=== PATIENT | male | born 1945 | race Caucasian/White ===

== ENCOUNTER 2019-11-13 15:10 | Observation (INO) | payer OTHER ==
[2019-11-13 16:02] LABS: Absolute Lymphocytes (CBC) 0.6 K/uL (0.7-4.9); Basophils % 0.4 % (0-1.3); Hematocrit 43.8 % (39.6-49.0); Lymphocytes % 13.1 % (15.3-44.8); MPV 7.6 fL (7.6-11.3); RBC Red Blood Cell Count 4.55 M/uL (4.33-5.43)
[2019-11-13 16:10] LABS: Protime INR 1.15
[2019-11-13 16:27] LABS: ALT/SGPT 65 U/L (12-78); AST/SGOT 68 U/L (15-37); Albumin 4.1 g/dL (3.4-5.0); Alkaline Phosphatase 72 U/L (45-117); BUN Blood Urea Nitrogen 21 mg/dL (7-18); Bicarbonate 29 mmol/L (21-32); Bilirubin Direct 0.3 mg/dL (0-0.2); Bilirubin Total 0.9 mg/dL (0.2-1.0); Glucose Level 94 mg/dL (74-106); Magnesium 2.2 mg/dL (1.8-2.4); NT PRO-BNP 26 pg/mL (<450); Potassium 3.8 mmol/L (3.5-5.1); Protein, Total 7.9 g/dL (6.4-8.2); Sodium Level 137 mmol/L (136-145); Troponin (Emerg Dept Use Only) < 0.02 ng/mL (0.0-0.045)
--- NOTE | 2019-11-13 17:10 | RAD REPORT ---
EXAM DESCRIPTION: RAD - Chest Single View - 11/13/2019 4:58 pm CLINICAL HISTORY: chest pain, sob COMPARISON: December 2018 TECHNIQUE: AP portable chest image was obtained 11/13/2019 4:58 pm . FINDINGS: No focal mass or consolidation. Interstitial pattern is accentuated by shallow inspiration . No significant change from comparison. Heart and vasculature are normal. No measurable pleural effu whitney and no pneumothorax. No acute bony abnormality seen. No acute aortic findings suspected. IMPRESSION: No acute cardiopulmonary process. No significant change from comparison.
--- NOTE | 2019-11-13 17:16 | RAD REPORT ---
EXAM DESCRIPTION: CT - Chest For Pe Angio - 11/13/2019 5:06 pm CLINICAL HISTORY: chest pain, shortness of breath COMPARISON: Chest Single View dated 11/13/2019 TECHNIQUE: Dynamically enhanced 3 mm thick images of the chest were obtained during administration o f approximately 150mL Isovue 370 IV contrast. Coronal and oblique MIP reconstruction images were gene rated and reviewed. Exam utilizes a protocol to evaluate the pulmonary arterial tree. All CT scans are performed using dose optimization technique as appropriate and may include automated exposure control or mA/KV adjustment according to patient size. FINDINGS: No pulmonary emboli are identified. The aorta as imaged shows no acute or suspicious finding. No pericardial thickening or effusion. No infiltrate or mass in the lung parenchyma. No pleural effusion or pleural thickening. Calcified an d noncalcified pleural plaques present with no suspicious mass component. Interstitial markings are a ccentuated by motion. A minimal edema or infiltrate could potentially be mass. No mediastinal or hilar suspicious masses. No chest wall masses or abnormal axillary lymphadenopathy. Granulomatous calcifications are present. IMPRESSION: No pulmonary emboli identified. No mass, consolidation or suspicious lung parenchymal process. Respiratory motion accentuates interst itial pattern potentially masking mild interstitial edema or infiltrate.
[2019-11-13] MEDS ORDERED: ACETAMINOPHEN 500 MG TAB PO PRN (18:01)
[2019-11-13] MEDS ORDERED: ONDANSETRON 4 MG/2 ML VIAL IV PRN (18:01)
[2019-11-13] MEDS ORDERED: ASPIRIN 81 MG CHEWABLE TABLET ONE (18:08)
[2019-11-13 20:47] VITALS: BMI 28.4
[2019-11-13] MEDS ORDERED: SIMETHICONE 125 MG PO PRN (21:18)
[2019-11-13] MEDS ORDERED: DOCUSATE 100 MG PO PRN (21:18)
[2019-11-14 05:51] LABS: Absolute Lymphocytes (CBC) 0.7 K/uL (0.7-4.9); Basophils % 0.5 % (0-1.3); Hematocrit 42.6 % (39.6-49.0); MPV 7.7 fL (7.6-11.3); RBC Red Blood Cell Count 4.42 M/uL (4.33-5.43)
[2019-11-14 06:26] LABS: BUN Blood Urea Nitrogen 14 mg/dL (7-18); Bicarbonate 25 mmol/L (21-32); Glucose Level 96 mg/dL (74-106); Potassium 3.7 mmol/L (3.5-5.1); Sodium Level 141 mmol/L (136-145)
[2019-11-14] MEDS: ASPIRIN EC 81 MG TAB PO SCH (08:12)
[2019-11-14] MEDS ORDERED: [UNRECOGNIZED DRUG - OTHER] PO SCH (09:00)
[2019-11-14] MEDS ORDERED: HOME MED 1 EA UNK (Fluticasone/Vilanterol [Breo Ellipta 200-25 Mcg Inh] 1 EACH) IH SCH (09:00)
[2019-11-14] MEDS ORDERED: HOME MED 1 EA UNK (Vitamin E [Vitamin E] 1,000 UNIT) PO SCH (09:00)
[2019-11-14] MEDS ORDERED: HOME MED 1 EA UNK (Fluticasone Propionate [Flovent Diskus] 50 MCG) IH SCH (09:00)
[2019-11-14] MEDS ORDERED: TAMSULOSIN HCL 0.4 MG PO SCH (09:00)
[2019-11-14] MEDS ORDERED: ASPIRIN 81 MG PO SCH (09:00)
[2019-11-14] MEDS ORDERED: LORATADINE 10 MG PO SCH (09:00)
[2019-11-14] MEDS ORDERED: RILUZOLE 50 MG PO SCH (09:00)
[2019-11-14] MEDS ORDERED: GABAPENTIN PO SCH (09:00)
[2019-11-14] MEDS ORDERED: HOME MED 1 EA UNK (Ascorbic Acid [Vitamin C] 1,000 MG) PO SCH (09:00)
[2019-11-14] MEDS ORDERED: LIDOCAINE 1% 20 ML MDV ONE (11:21)
[2019-11-14] MEDS ORDERED: HEPA 1000U/500MLS 2,000 UNIT/1,000 ML BAG IV ONE (11:21)
[2019-11-14] MEDS ORDERED: ATROPINE SULF 1 MG/10 ML SYR IV ONE (11:22)
[2019-11-14] MEDS ORDERED: NICARDIPINE HCL 25 MG/10 ML IV ONE (11:22)
[2019-11-14] MEDS ORDERED: HEPARIN 5000 UNIT/ML 1 ML VIAL ONE ×2 (11:22→11:31)
[2019-11-14] MEDS ORDERED: NITROGLYCERIN/D5W 25 MG/250 ML BTL IV ONE (11:22)
[2019-11-14] MEDS ORDERED: NITROGLYCERIN 100 MCG/ML SYR (for cath lab use only) IV ONE (11:22)
[2019-11-14] MEDS ORDERED: MIDAZOLAM HCL 2 MG/2 ML INJ ONE ×2 (11:29→12:06)
[2019-11-14] MEDS ORDERED: FENTANYL CITR 100 MCG/2 ML ONE (11:30)
[2019-11-14] MEDS ORDERED: NA CHLORIDE 0.9% 500 ML ONE (11:49)
[2019-11-14] MEDS ORDERED: ACETAMINOPHEN 325 MG TABLET PO PRN (15:03)
[2019-11-14] MEDS ORDERED: NITROGLYCERIN 0.4 MG/TAB SL PRN (15:06)
[2019-11-14] MEDS ORDERED: NA CHLORIDE 0.9% 1,000 ML IV SCH (16:00)
[2019-11-15] MEDS: ASPIRIN EC 81 MG TAB PO SCH (08:03)
[2019-11-15 09:25] VITALS: O2SAT 95
[2019-11-15 09:55] VITALS: BP 120/61; TEMP 97.3
--- NOTE | 2019-11-15 11:38 | HP ---
Date of Admission: 11/14/2019 Chief Complaint: Chest pain and shortness of breath. History Of Present Illness: A 74-year-old male patient, who came into emergency room with almost 2 weeks history of chest pain and some shortness of breath. Patient describes having his chest pain is chest tightness-type of feeling. Usually, it happens at nighttime and associated some shortness of breath symptoms also. He gets out of bed, sits in the chair for a while and that problem goes away. After he came into emergency room, he was admitted to the hospital. He has also noted some bilateral leg swelling lately. When I saw him this morning, he was sitting at bedside. Collateral Specialist had just evaluated him and has recommended cardiac cath, which will be done later today. Patient is asymptomatic at present time. Allergies: NO KNOWN ALLERGIES. Medication List: Reviewed. Review of Systems: Cardiovascular: As mentioned above. All other systems reviewed and negative. Past Medical History: Significant for ALS, allergic rhinitis, obstructive sleep apnea, impaired fasting glucose, hypertension, hyperlipidemia, coronary artery disease, abnormal liver function test, benign prostatic hypertrophy, and thrombocytopenia. Past Surgical History: Coronary artery stent placement in 1996 and 1997, hemorrhoid surgery, back surgery. Family History: Mother with Alzheimer disease, hypertension, and stroke. Social History: Prior history of smoking, not at present time. Use of alcohol, negative. Physical Examination: Vital Signs: Temperature 97.2, pulse 82, respiratory rate 14, blood pressure 134/73, oxygen saturation 90%. Height 5 feet 11 inches, weight 204 pounds. General: Awake, alert, oriented, not in distress. HEENT: Head atraumatic, normocephalic. Conjunctivae nonerythematous. Sclerae white. Mouth, no thrush or edema noted. Ears/Nose, no mass, lesion, discharge noted. Neck: Supple. No JVD, lymph nodes, bruit, thyromegaly noted. Lungs: Very faint and very fine rales noted in both lung bases. Heart: Normal heart sounds, no murmur or gallop. Abdomen: Soft, bowel sounds normal. No guarding, rigidity, tenderness, mass, hepatosplenomegaly, distention, or bruit noted. Extremities: Very trace pedal edema involving both feet. Skin: No rash, ulcer, cellulitis. Lymphatics: No lymph node enlargement in neck, supraclavicular, infraclavicular region. Neuro: No focal neurological deficit. Chest: Unremarkable. External Genitalia: Deferred. Rectal: Deferred. Laboratory Data: Initial white count 4.8, hemoglobin 14.5, platelets 140. Sodium 137, potassium 3.8, chloride 103, bicarb 29, BUN 21, creatinine 0.68, glucose 94. Liver function tests unremarkable except AST 68. Troponin less than 0.02 x3. EKG, no acute ST-T changes. Chest x-ray, no acute cardiopulmonary changes. CAT scan of the chest per PE protocol, no evidence of pulmonary emboli. Impression: 1. Chest pain. 2. Coronary artery disease. 3. Hypertension. 4. Thrombocytopenia. 5. Hyperlipidemia. 6. Amyotrophic lateral sclerosis. 7. Impaired fasting glucose. 8. Abnormal liver function test. Plan: We will admit the patient to hospital for further evaluation and management of this problem. FL has been ruled out and guard manager has just evaluated prior to my arrival and has recommended cardiac cath which will be done later today and further plan of treatment will of course depend on findings during the cardiac cath procedure. Details plan of treatment discussed with the patient. He understands and agrees to go with the procedure as described by guard manager and I will see him tomorrow for followup. Echocardiogram was ordered to evaluate for left ventricular ejection fraction. ALEC/MODL Voice ID: [id number] PARMINDER
--- NOTE | 2019-11-15 12:59 | EKG ---
Test Date: 2019-11-14 Test Time: 08:14:46 Still Runner: PONCHO MEASUREMENT RESULTS: Intervals: Rate: 80 VT: 186 QRSD: 72 QT: 340 QTc: 392 [place]: P: 53 VT: 186 QRS: 35 T: 69 INTERPRETIVE STATEMENTS: Normal sinus rhythm Low voltage QRS Septal infarct, age undetermined Abnormal ECG Compared to ECG 11/13/2019 15:36:03 Myocardial infarct finding now present Electronically Signed On 11-15-19 12:59:02 CDT by Emanuel Braga
--- NOTE | 2019-11-15 13:01 | EKG ---
Test Date: 2019-11-13 Test Time: 15:36:03 Payroll Clerk: ANETTE MEASUREMENT RESULTS: Intervals: Rate: 93 DC: 192 QRSD: 76 QT: 330 QTc: 410 [place]: P: 41 DC: 192 QRS: 28 T: 51 INTERPRETIVE STATEMENTS: Normal sinus rhythm Low voltage QRS Borderline ECG Electronically Signed On 11-15-19 13:00:52 CDT by Emanuel Braga
--- NOTE | 2019-11-15 18:26 | OP ---
Date of Procedure: 11/14/2019 Surgeon: LEIGH ANN BENNETT Bods Developer: Dr. Leigh Ann Bennett. Fabrication Inspector: Emanuel Braga MD. Name Of Procedures: 1.Selective coronary angiogram. 2.Left heart catheterization. Indication: Unstable angina. Total Sedation Time: 25 minutes. Access: Right radial artery 6-Macedonian closed with TR band. Description Of Procedure: Using a pediatric micropuncture kit, after numbing the subcutaneous tissue of the radial area, the radial artery was accessed and using fentanyl and Versed in incremental dose s were done to achieve adequate moderate sedation. Then, subsequently we took the 6-Macedonian Nicholls cat heter into the aortic root over a J-wire and engaged the left main coronary artery, then the right co ronary artery and took standard views. Then, we took the catheter out and sheath and closed the acce ss with a TR band without complications. Findings: 1.Distal RCA stent has in-stent restenosis about 30% to 40% with KAMRYN-3 flow. 2.Right PLB has 40% to 50% stenosis with KAMRYN-3 flow. 3.LAD has luminal irregularities. 4.Left circumflex has mild diffuse disease, 10% to 20%. 5.LVEDP was 17 mmHg. The catheter was advanced to the LV and then recorded pressure and then upon p ullback, there was no difference in gradient. Impression: 1.[id number] nonobstructive coronary artery disease. 2.Mild elevation of LVEDP. Recommendations: 1.Diuretics. 2.Aggressive medical management of coronary artery disease. SR/MODL Voice ID: [id number] Report ID: [id number]
--- NOTE | 2019-11-15 21:28 | DS ---
Date of Discharge: 11/15/2019 Disposition: Discharged to go home. Physical Examination: HEENT: Unremarkable. Lungs: Clear to auscultation. Heart: Sounds normal. Abdomen: Soft. Bowel sounds normal. No guarding, rigidity, tenderness, or distention. Extremities: Trace edema of bilateral feet. Discharge Medications And Instructions: 1.Continue all prior home medications. 2.Follow up at my office as per scheduled appointment during month of November 2019. Hospital Course: This is a 74-year-old male patient who was admitted to the hospital with almost 2 w eeks history of some chest pain and shortness of breath. Please see dictated H and P for more inform ation. Patient gets this chest tightness type of feeling at night time while he is in the bed and th at is associated with shortness of breath and usually he says that he has to get out of bed and then get in the recliner and once he does that he starts to feel better. He came into emergency room with this complaints after he was evaluated. He was admitted to the hospital. His RI was ruled out by g etting serial cardiac enzymes. Yesterday, the financial analysis consultant decided to do cardiac cath and angiogram showed normal coronaries. He has stent in right coronary artery which was patent and this was placed in 1996 or so. The rest of the coronaries looks normal also. Echocardiogram was done yesterday, re madhavt is pending. Yesterday when I saw him, he did have very fine rales in the lower part of his lung in the basal region. This morning when I examined him, I could not detect any rales. He still cont inues to have slight swelling of his both feet. I explained it to him as well as his who was in the room with him. I am concerned about his symptoms could be either due to congestive heart failur e, likely diastolic congestive heart failure, and we will have to wait for the echocardiogram results and then we will be making appropriate decision on how to treat it. Other possible explanation woul d be if this is due to diaphragmatic dysfunction secondary to his ALS problem and if that is the case then he will benefit from evaluation by laminating machine tender and I did talk about using CPAP or BiPAP type of device or noninvasive ventilator and the patient's informed me that the patient did see Dr. Karlos nguyen in the past and the CPAP was prescribed, but he could not tolerate that, so he stopped using it. So, I have explained it to them that we may have to ask him to visit Dr. Helms on outpatient basis for further evaluation and management of this problem, but obviously we will have to wait until echocardiogram result comes back. He has appointment coming up this coming month in next 1 to 2 wee ks and he will keep that appointment. I also discussed details with Dr. Helms today. Final Diagnoses: 1.Chest pain. 2.Amyotrophic lateral sclerosis. 3.Coronary artery disease. 4.Hypertension. 5.Impaired fasting glucose. 6.Abnormal liver function test. ALEC/MODL Voice ID: [id number] Report ID: [id number]
--- NOTE | 2019-11-17 10:13 | ECHO ---
HEIGHT: 5 ft 11 in WEIGHT: 204 lb 0 oz DATE OF STUDY: 11/14/[address]: Justin Jones MD 2-DIMENSIONAL: YES M.MODE: YES DOPPLER: YES COLOR FLOW: YES TDS: NO PORTABLE: NO DEFINITY: NO BUBBLE STUDY: NO DIAGNOSIS: CHEST PAIN CARDIAC HISTORY: CATHERIZATION: YES SURGERY: NO PROSTHETIC VALVE: NO PACEMAKER: NO MEASUREMENTS (cm) DIASTOLIC (NORMALS) SYSTOLIC (NORMALS) IVSd 1.0 (0.6-1.2) LA Diam (1.9-4.0) LVEF 79% LVIDd 5.2 (3.5-5.7) LVIDs 2.7 (2.0-3.5) %FS 48% LVPWd 1.0 (0.6-1.2) Ao Diam 3.7 (2.0-3.7) 2 DIMENSIONAL ASSESSMENT: RIGHT ATRIUM: NORMAL LEFT ATRIUM: NORMAL RIGHT VENTRICLE: NORMAL LEFT VENTRICLE: NORMAL TRICUSPID VALVE: NORMAL MITRAL VALVE: NORMAL PULMONIC VALVE: NORMAL AORTIC VALVE: NORMAL PERICARDIAL EFFUSION: NONE AORTIC ROOT: NORMAL LEFT VENTRICULAR WALL MOTION: NORMAL DOPPLER/COLOR FLOW: COMMENTS: NORMAL LEFT VENTRICULAR EJECTION FRACTION WITH NORMAL WALL MOTION. NORMAL STUDY. TECHNOLOGIST: Justino COOK
--- NOTE | 2019-11-17 16:07 | ER ---
Nurse's Notes [facility] Name: Juan A Lewis Age: 74 yrs Sex: Male : 1945 Arrival Date: 11/13/2019 Time: 15:12 Bed 6 Private MD: Diagnosis: Chest pain, unspecified Presentation: 11/12 15:15 Chief complaint: Patient states: CP off/on for 2 weeks. Coronavirus screen: Proceed hb with normal triage. Patient denies a cough. Patient denies shortness of breath or difficulty breathing. Patient denies measured and/or subjective temperature greater than 100.4F prior to today's visit. Patient denies travel on a cruise ship or to a country the [facility] currently lists as an affected area. Patient denies contact with known and/or suspected case of COVID-19. Ebola Screen: Patient denies travel to an Ebola-affected area in the 21 days before illness onset. Initial Sepsis Screen: Does the patient meet any 2 criteria? No. Patient's initial sepsis screen is negative. Does the patient have a suspected source of infection? No. Patient's initial sepsis screen is negative. Risk Assessment: Do you want to hurt yourself or someone else? Patient reports no desire to harm self or others. Onset of symptoms was October 30, 2019. 15:15 Method Of Arrival: Ambulatory hb 15:15 Acuity: CLYDE 3 hb Historical: - Allergies: 15:18 No Known Drug Allergies; hb - Home Meds: 15:48 Breo Ellipta 200-25 mcg/dose inhalation dsdv 1 puff once daily [Active]; Flonase 50 sv mcg/actuation Nasal spsn [Active]; gabapentin 300 mg oral cap 2 caps 3 times per day [Active]; tamsulosin 0.4 mg oral cp24 1 cap once daily [Active]; riluzole 50 mg oral tab 1 tab every 12 hours [Active]; Ecotrin 81 mg daily oral TbEC [Active]; Vitamin C 1,000 mg Oral tab daily [Active]; vitamin E 1,000 unit Oral cap daily [Active]; Experimental pill BID [Active]; - PMHx: 15:18 ALS; Myocardial infarction; hb - PSHx: 15:18 hemorrhoid; heart stents x 2; back surgery; hb - Immunization history:: Flu vaccine is up to date. - Social history:: Smoking status: Patient/guardian denies using tobacco, the patient reports quitting approximately 20 years ago, Patient/guardian denies using alcohol, street drugs, tobacco products. Screenin:41 Abuse screen: Denies threats or abuse. Nutritional screening: No deficits noted. em Tuberculosis screening: No symptoms or risk factors identified. Fall Risk None identified. Assessment: 16:00 General: Appears in no apparent distress. comfortable, Behavior is calm, cooperative, em appropriate for age, Denies fever. Pain: Denies pain. Pain does not radiate. Pain currently is 0 out of 10 on a pain scale. Pain began weeks ago Is episodic. Neuro: Level of Consciousness is awake, alert, obeys commands, Oriented to person, place, time, situation, Appropriate for age. Cardiovascular: Capillary refill < 3 seconds Patient's skin is warm and dry. Respiratory: Airway is patent Respiratory effort is even, unlabored, Respiratory pattern is regular, symmetrical, Denies cough, shortness of breath. GI: Abdomen is flat, Patient currently denies nausea, vomiting. Derm: Skin is intact, is thin, Skin is pink, warm \T\ dry. Musculoskeletal: Capillary refill < 3 seconds, Range of motion: intact in all extremities. 18:15 Reassessment: Patient appears in no apparent distress at this time. Patient and/or em family updated on plan of care and expected duration. Pain level reassessed. Patient is alert, oriented x 3, equal unlabored respirations, skin warm/dry/pink. Patient states symptoms have improved. 19:20 General: Appears in no apparent distress. comfortable, Behavior is calm, cooperative, rr5 appropriate for age, awaiting for room transfer. Pain: Denies pain. Neuro: Level of Consciousness is awake, alert, obeys commands, Oriented to person, place, time, situation, Appropriate for age. Cardiovascular: Capillary refill < 3 seconds Patient's skin is warm and dry. Edema lower extremities. Respiratory: Airway is patent Respiratory effort is even, unlabored, Respiratory pattern is regular, symmetrical. GI: No signs and/or symptoms were reported involving the gastrointestinal system. : No signs and/or symptoms were reported regarding the genitourinary system. EENT: No signs and/or symptoms were reported regarding the EENT system. Derm: Skin Skin is pink, warm \T\ dry. Musculoskeletal: Capillary refill < 3 seconds. 19:49 Reassessment: Patient appears in no apparent distress at this time. No changes from rr5 previously documented assessment. Patient is alert, oriented x 3, equal unlabored respirations, skin warm/dry/pink. Vital Signs: 15:15 BP 132 / 85; Pulse 85; Resp 18; Temp 97.7; Pulse Ox 96% ; Weight 92.53 kg; Height 5 ft. hb 11 in. (180.34 cm); Pain 3/10; 16:00 BP 112 / 77; Pulse 89; Resp 14; Pulse Ox 97% ; sv 17:15 BP 141 / 75; Pulse 86; Resp 16; Pulse Ox 98% ; sv 18:17 BP 117 / 70; Pulse 71; Resp 16; Pulse Ox 99% on R/A; Pain 0/10; em 19:30 BP 111 / 76; Pulse 70; Resp 17; Temp 97.8; Pulse Ox 99% ; Pain 0/10; rr5 15:15 Body Mass Index 28.45 (92.53 kg, 180.34 cm) hb ED Course: 15:12 Patient arrived in ED. fj1 15:17 Triage completed. hb 15:19 Arm band placed on Patient placed in an exam room, on a stretcher. hb 15:22 Marlon Hart PA is PHCP. jmm 15:22 Filiberto Lawton MD is Attending Physician. jmm 15:28 Husam Alvarez, PRAMOD is Primary Nurse. em 15:38 Initial lab(s) drawn, by me, sent to lab. Inserted saline lock: 22 gauge in left kj1 antecubital area, using aseptic technique. Blood collected. 15:41 Patient has correct armband on for positive identification. Bed in low position. Call em light in reach. Pulse ox on. NIBP on. 16:00 Patient maintains SpO2 saturation greater than 95% on room air. em 16:59 XRAY Chest (1 view) In Process Unspecified. EDMS 17:06 CT Chest For PE Angio In Process Unspecified. EDMS 17:58 Karlos Jones MD is Hospitalizing Provider. jmm 19:50 No provider procedures requiring assistance completed. Patient admitted, IV remains in rr5 place. intact, No redness/swelling at site. Administered Medications: 18:08 Drug: Aspirin Chewable Tablet 324 mg Route: PO; em 18:57 Follow up: Response: No adverse reaction em Outcome: 17:59 Decision to Hospitalize by Provider. rashid 19:50 Admitted to Med/surg accompanied by tech, via stretcher, room 228, with chart, Report rr5 called to brigette 19:50 Condition: stable 19:50 Instructed on the need for admit. 19:50 Patient left the ED. rr5 Signatures: Dispatcher [employer] Chyna Torrez, RN RN Marlon De Leon PA PA jmm Munoz, Edgar, PRAMOD RN Ria Davenport RN RN Luis Reid RN RN rr5 Alba Orozco kj1 Ramsey [email or web address] Corrections: (The following items were deleted from the chart) 18:43 18:41 Initial lab(s) drawn, by me, sent to lab. kj1 kj1 18:43 15:25 Inserted saline lock: 22 gauge in left antecubital area, using aseptic technique. kj1 Blood collected. kj1
--- NOTE | 2019-11-17 16:07 | EDPHYS ---
Physician Documentation [facility] Name: Juan A Lewis Age: 74 yrs Sex: Male : 1945 Arrival Date: 11/13/2019 Time: 15:12 Bed 6 Private MD: ED Physician Filiberto Lawton HPI: 11/12 15:22 This 74 yrs old Male presents to ER via Ambulatory with complaints of Chest jmm Pain > 30 y/o. 15:22 The patient or guardian reports chest pain that is located primarily in the substernal jmm area. Onset: gradually, 2 week(s) ago. The pain does not radiate. Associated signs and symptoms: Pertinent positives: shortness of breath. The chest pain is described as aching, sharp. Duration: The patient or guardian reports multiple episodes, the episodes last approximately 15 minute(s). This is a 74 year old male with a history of IN that presents to the ED with complaints of substernal chest pain beginning approx 2 weeks ago worsening over the past week. Pain is worsened with deep inspiration. . Historical: - Allergies: 15:18 No Known Drug Allergies; hb - Home Meds: 15:48 Breo Ellipta 200-25 mcg/dose inhalation dsdv 1 puff once daily [Active]; Flonase 50 sv mcg/actuation Nasal spsn [Active]; gabapentin 300 mg oral cap 2 caps 3 times per day [Active]; tamsulosin 0.4 mg oral cp24 1 cap once daily [Active]; riluzole 50 mg oral tab 1 tab every 12 hours [Active]; Ecotrin 81 mg daily oral TbEC [Active]; Vitamin C 1,000 mg Oral tab daily [Active]; vitamin E 1,000 unit Oral cap daily [Active]; Experimental pill BID [Active]; - PMHx: 15:18 ALS; Myocardial infarction; hb - PSHx: 15:18 hemorrhoid; heart stents x 2; back surgery; hb - Immunization history:: Flu vaccine is up to date. - Social history:: Smoking status: Patient/guardian denies using tobacco, the patient reports quitting approximately 20 years ago, Patient/guardian denies using alcohol, street drugs, tobacco products. ROS: 15:22 Constitutional: Negative for fever, chills, and weight loss. jmm 15:22 Cardiovascular: Positive for chest pain. 15:22 Respiratory: Positive for shortness of breath. 15:22 All other systems are negative. Exam: 15:22 Constitutional: This is a well developed, well nourished patient who is awake, alert, jmm and in no acute distress. Head/Face: atraumatic. Eyes: EOMI, no conjunctival erythema appreciated ENT: Moist Mucus Membranes Neck: Trachea midline, Supple Chest/axilla: Normal chest wall appearance and motion. Cardiovascular: Regular rate and rhythm. No edema appreciated Respiratory: Normal respirations, no respiratory distress appreciated Abdomen/GI: Non distended, soft Back: Normal ROM Skin: General appearance color normal MS/ Extremity: Moves all extremities, no obvious deformities appreciated, no edema noted to the lower extremities Neuro: Awake and alert, normal gait Psych: Behavior is normal, Mood is normal, Patient is cooperative and pleasant 16:08 ECG was reviewed by the Attending Physician. [facility] Vital Signs: 15:15 BP 132 / 85; Pulse 85; Resp 18; Temp 97.7; Pulse Ox 96% ; Weight 92.53 kg; Height 5 ft. hb 11 in. (180.34 cm); Pain 3/10; 16:00 BP 112 / 77; Pulse 89; Resp 14; Pulse Ox 97% ; sv 17:15 BP 141 / 75; Pulse 86; Resp 16; Pulse Ox 98% ; sv 18:17 BP 117 / 70; Pulse 71; Resp 16; Pulse Ox 99% on R/A; Pain 0/10; em 19:30 BP 111 / 76; Pulse 70; Resp 17; Temp 97.8; Pulse Ox 99% ; Pain 0/10; rr5 15:15 Body Mass Index 28.45 (92.53 kg, 180.34 cm) MDM: 15:22 Patient medically screened. [facility] 17:57 Data reviewed: vital signs, nurses notes, lab test result(s), radiologic studies, [facility] films. ED course: I discussed the patient with Dr. Silverio whom recommends admission. I discussed the patient with Dr. Jones whom accepted admission. . 11/12 15:28 Order name: Basic Metabolic Panel; Complete Time: 16:29 [facility] 11/12 15:28 Order name: CBC with Diff; Complete Time: 16:15 [facility] 11/12 15:28 Order name: LFT's; Complete Time: 16:29 [facility] 11/12 15:28 Order name: Magnesium; Complete Time: 16:29 [facility] 11/12 15:28 Order name: NT PRO-BNP; Complete Time: 16:29 [facility] 11/12 15:28 Order name: PT-INR; Complete Time: 16:20 [facility] 11/12 15:28 Order name: Troponin (emerg Dept Use Only); Complete Time: 16:29 [facility] 11/12 15:28 Order name: XRAY Chest (1 view); Complete Time: 17:47 [facility] 11/12 15:28 Order name: EKG; Complete Time: 15:29 [facility] 11/12 15:28 Order name: Cardiac monitoring; Complete Time: 15:59 [facility] 11/12 15:28 Order name: EKG - Nurse/Tech; Complete Time: 15:59 [facility] 11/12 15:28 Order name: IV Saline Lock; Complete Time: 15:59 [facility] 11/12 16:30 Order name: CT Chest For PE Angio; Complete Time: 17:47 [facility] 11/12 15:28 Order name: Labs collected and sent; Complete Time: 16:00 [facility] 11/12 15:28 Order name: O2 Per Protocol; Complete Time: 16:00 [facility] 11/12 15:28 Order name: O2 Sat Monitoring; Complete Time: 16:00 EC:08 Rate is 93 beats/min. Rhythm is regular. QRS [place] is Normal. NH interval is normal. QRS jmm interval is normal. QT interval is normal. No Q waves. T waves are Normal. No ST changes noted. Reviewed by me. Administered Medications: 18:08 Drug: Aspirin Chewable Tablet 324 mg Route: PO; em 18:57 Follow up: Response: No adverse reaction em Disposition: 11/13/19 17:59 Hospitalization ordered by Karlos Jones for Observation. Preliminary diagnosis is Chest pain, unspecified. - Bed requested for Telemetry/MedSurg (observation). - Status is Observation. rr5 - Condition is Stable. - Problem is new. - Symptoms are unchanged. Addendum: 11/15/2019 07:58 Co-signature as Attending Physician, Filiberto Lawton MD I agree with the assessment and nazario herrera plan of care. 07:58 Co-signature as Attending Physician, Filiberto Lawton MD I agree with the assessment and k dr plan of care. Signatures: Dispatcher [employer] EDMS Sandra Miguel Stephanie, RN RN Filiberto Mejia MD MD kdr Mickail, Joel, PA PA [facility] Husam Alvarez, RN RN em Ria Zamudio, RN Luis Vallecillo, RN RN rr5 Corrections: (The following items were deleted from the chart) 11/12 18: 17:59 Hospitalization Ordered by A Karen SMALL for Observation. Preliminary diagnosis is bd Chest pain, unspecified. Bed requested for Telemetry/MedSurg (observation). Status is Observation. Condition is Stable. Problem is new. Symptoms are unchanged. [facility] 19:50 18:32 11/13/2019 17:59 Hospitalization Ordered by A Karen SMALL for Observation. rr5 Preliminary diagnosis is Chest pain, unspecified. Bed requested for Telemetry/MedSurg (observation). Status is Observation. Condition is Stable. Problem is new. Symptoms are unchanged. bd
--- NOTE | 2019-11-17 18:52 | CON ---
Date of Consultation: 11/14/2019 Chief Complaint: Chest pain, shortness of breath. History Of Present Illness: This is a 74-year-old male who is admitted with frequent chest pain. Tom nobles is known to have coronary artery disease that was nonobstructive. Chest pain is becoming more frequent. He will have more than 1 episode in 1 hour, tightness that radiates to the left shoulder a long with shortness of breath and orthopnea and lower extremity edema. No nausea, vomiting, or diarr hea. No abdominal pain. No diaphoresis. Patient's exercise capacity is limited due to ALS. Past Medical History: Known for ALS, coronary artery disease, obstructive sleep apnea, hypertension, dyslipidemia. Medications: Refer to reconciliation sheet for detailed list. Past Surgical History: Coronary artery stent placement in 1996 and then 1997, hemorrhoid surgery, ba ck surgery. Family History: CVA and hypertension on mother's side. Social History: Does not smoke or drink. Does not use any drugs. Review of Systems: All systems reviewed and they were negative except what is mentioned in the HPI. Physical Examination: Vital Signs: Temperature is 97.4, pulse is 83, breathing at 18, blood pressure 134/73, saturating 92 % on room air. General: Pleasant elderly male in no apparent distress. Head and Neck: Pupils are equal and reactive to light. Intact eye movements. No JVD. No cervical lymphadenopathy. Neck is supple. Lungs: Clear to auscultation bilaterally. No rhonchi, rales, or crackles. No accessory muscle use. Heart: Regular rate and rhythm. No extra sounds. Abdomen: Soft, nontender. Bowel sounds positive. No organomegaly. No masses or hernia. No rigidi ty or rebound. Extremities: Edema bilaterally. No clubbing or cyanosis. Intact pulses. Skin: No rash noted. Neurologic: Alert, awake, oriented. No new focal deficits appreciated. Investigations: Troponins are negative. Creatinine 0.68. Assessment And Recommendation: 1.Chest pain, likely due to unstable angina. Patient is known to have coronary artery disease. We will plan for coronary angiogram. Risks, benefits, and alternatives were discussed with the patient in detail and patient agreed with the procedure and signed informed consent. Meanwhile, start on asp irin 81 mg and beta-john if possible. 2.Congestive heart failure with exacerbation. Recommend IV Lasix and during heart catheterization, we will do left heart catheterization and obtain LVEDP for further evaluation. 3.Hypertension, which is controlled. Appreciate letting me participate in this patient's care. /YANICK Voice ID: [id number] Report ID: [id number]
== END 2019-11-15 11:33 | disposition home or self-care (01) ==
LOC: ER 15:10 → ERHOLD 18:03 → 2ND 19:44
PROVIDERS: ADMIT Internal Medicine; ATTEND Internal Medicine
PROC: 4A023N7 Measurement of Cardiac Sampling and Pressure, Left Heart, Percutaneous Approach (ICD-10-PCS; principal; 2019-11-13)
PROC: B201YZZ Plain Radiography of Multiple Coronary Arteries using Other Contrast (ICD-10-PCS; 2019-11-13)
PROC: B205YZZ Plain Radiography of Left Heart using Other Contrast (ICD-10-PCS; 2019-11-13)
DX: I25.110 Atherosclerotic heart disease of native coronary artery with unstable angina pectoris (principal); T82.855A Stenosis of coronary artery stent, initial encounter; I11.0 Hypertensive heart disease with heart failure; I50.9 Heart failure, unspecified; G47.33 Obstructive sleep apnea (adult) (pediatric); I25.2 Old myocardial infarction; E78.5 Hyperlipidemia, unspecified; D69.6 Thrombocytopenia, unspecified; G12.21 Amyotrophic lateral sclerosis; R73.01 Impaired fasting glucose; R94.5 Abnormal results of liver function studies; Z95.5 Presence of coronary angioplasty implant and graft; Z82.49 Family history of ischemic heart disease and other diseases of the circulatory system
CPT/HCPCS: 93005 ×2; 93306; 85025 ×2; 80048 ×2; 36415; 83735; 85610; 80076; 84484 ×3; 83880; 71275; 71045; 93458; 99285; Q9967; C1893; J1644; J2250; J3010; G0378 ×5; J7040; J7030; J2405

== ENCOUNTER 2020-03-19 13:49 | Emergency (ER) | payer OTHER ==
[2020-03-19 14:50] LABS: Absolute Lymphocytes (CBC) 0.7 K/uL (0.7-4.9); Basophils % 0.4 % (0-1.3); Lymphocytes % 9.9 % (15.3-44.8); MPV 7.9 fL (7.6-11.3); RBC Red Blood Cell Count 4.46 M/uL (4.33-5.43)
[2020-03-19 15:08] LABS: ALT/SGPT 53 U/L (12-78); AST/SGOT 35 U/L (15-37); Albumin 4.2 g/dL (3.4-5.0); Alkaline Phosphatase 77 U/L (45-117); BUN Blood Urea Nitrogen 17 mg/dL (7-18); Bicarbonate 30 mmol/L (21-32); Bilirubin Direct 0.3 mg/dL (0-0.2); Glucose Level 104 mg/dL (74-106); Potassium 3.9 mmol/L (3.5-5.1); Protein, Total 7.8 g/dL (6.4-8.2); Sodium Level 137 mmol/L (136-145)
[2020-03-19 15:38] LABS: Urine Bacteria <20 /HPF (NONE SEEN); Urine RBC >50 /HPF (NONE SEEN)
[2020-03-19 15:39] LABS: Urine Culture Reflex Order NOT NEEDED
[2020-03-19 15:39] LABS: Urine Blood 3+ (NEG); Urine Glucose NEGATIVE (NEG); Urine Protein 1+ (NEG); Urine Specific Gravity 1.015 (1.005-1.030)
--- NOTE | 2020-03-19 16:02 | RAD REPORT ---
EXAM DESCRIPTION: CT - Abdomen Pelvis W Contrast - 03/19/2020 3:43 pm CLINICAL HISTORY: Abdominal pain COMPARISON: none. TECHNIQUE: Computed axial tomography of the abdomen pelvis was obtained. 100 cc Isovue-300 was admin istered intravenously. Oral contrast was not requested which limits evaluation of bowel. All CT scans are performed using dose optimization technique as appropriate and may include automated exposure control or mA/KV adjustment according to patient size. FINDINGS: The 1 centimeter lobulated structure is present within the posterior bladder. Additionally there is mild right and left posterior bladder wall thickening. The prostate gland is mildly to moderately enlarged. Tiny cysts are present. Splenic granulomata are noted. The pancreas, adrenals and kidneys appear unremarkable. There is no evidence of diverticulitis. . Spondylosis involves lumbar spine resulting spinal stenosis IMPRESSION: 1 centimeter lobulated structure within the posterior bladder. Additionally there is mil d right and left posterolateral bladder wall thickening. Direct visualization recommended for further evaluation
--- NOTE | 2020-03-19 16:06 | EDPHYS ---
Physician Documentation [facility] Name: Juan A Lewis Age: 75 yrs Sex: Male : 1945 Arrival Date: 03/19/2020 Time: 13:51 Bed 20 Private MD: Chris Stevenson ED Physician Chino Ariza HPI: 03/19 14:46 This 75 yrs old Male presents to ER via Ambulatory with complaints of Blood jr8 In Urine. 14:46 The patient presents with urinary symptoms, hematuria. Onset: The symptoms/episode jr8 began/occurred acutely, yesterday. Modifying factors: The symptoms are alleviated by nothing, the symptoms are aggravated by nothing. Associated signs and symptoms: Pertinent positives: abdominal pain. Severity of symptoms: At their worst the symptoms were mild, in the emergency department the symptoms are unchanged. The patient has not experienced similar symptoms in the past. The patient has not recently seen a physician. History of ALS. Stated that he has been very constipated as of lately and has been straining. Used the restroom the other day and was straining hard during bowel movement. Since then has had blood tinged urine that is not resolving. History of BPH as well . Historical: - Allergies: 14:00 No Known Allergies; jd3 - Home Meds: 14:00 aspirin 81 mg Oral chew [Active]; gabapentin 300 mg Oral cap 1 cap daily [Active]; jd3 riluzole 50 mg Oral tab 1 tab every 12 hours [Active]; Breo Ellipta 100-25 mcg/dose inhalation dsdv [Active]; - PMHx: 14:00 ALS; Myocardial infarction; Anxiety; jd3 - PSHx: 14:00 heart stents x 2; hemorrhoid; back surgery; jd3 - Immunization history:: Adult Immunizations unknown. - Social history:: Smoking status: unknown. ROS: 14:46 Eyes: Negative for injury, pain, redness, and discharge, ENT: Negative for injury, jr8 pain, and discharge, Neck: Negative for injury, pain, and swelling, Cardiovascular: Negative for chest pain, palpitations, and edema, Respiratory: Negative for shortness of breath, cough, wheezing, and pleuritic chest pain, Back: Negative for injury and pain, MS/Extremity: Negative for injury and deformity, Skin: Negative for injury, rash, and discoloration, Neuro: Negative for headache, weakness, numbness, tingling, and seizure. 14:46 Abdomen/GI: Positive for abdominal pain, constipation, Negative for nausea, vomiting, and diarrhea, abdominal cramps, abdominal distension, anorexia, dysphagia, hematemesis, black/tarry stool, rectal pain, rectal bleeding, bowel incontinence, flatulence. 14:46 : Positive for hematuria, Negative for urinary symptoms, foul smelling urine, penile discharge, penile pain, testicular pain Exam: 14:46 Eyes: Pupils equal round and reactive to light, extra-ocular motions intact. Lids and jr8 lashes normal. Conjunctiva and sclera are non-icteric and not injected. Cornea within normal limits. Periorbital areas with no swelling, redness, or edema. ENT: Nares patent. No nasal discharge, no septal abnormalities noted. Tympanic membranes are normal and external auditory canals are clear. Oropharynx with no redness, swelling, or masses, exudates, or evidence of obstruction, uvula midline. Mucous membranes moist. Neck: Trachea midline, no thyromegaly or masses palpated, and no cervical lymphadenopathy. Supple, full range of motion without nuchal rigidity, or vertebral point tenderness. No Meningismus. Cardiovascular: Regular rate and rhythm with a normal S1 and S2. No gallops, murmurs, or rubs. Normal PMI, no JVD. No pulse deficits. Respiratory: Lungs have equal breath sounds bilaterally, clear to auscultation and percussion. No rales, rhonchi or wheezes noted. No increased work of breathing, no retractions or nasal flaring. Abdomen/GI: Soft, non-tender, with normal bowel sounds. No distension or tympany. No guarding or rebound. No evidence of tenderness throughout. Back: No spinal tenderness. No costovertebral tenderness. Full range of motion. Male : Normal genitalia with no discharge or lesions. Skin: Warm, dry with normal turgor. Normal color with no rashes, no lesions, and no evidence of cellulitis. MS/ Extremity: Pulses equal, no cyanosis. Neurovascular intact. Full, normal range of motion. Neuro: Awake and alert, GCS 15, oriented to person, place, time, and situation. Cranial nerves II-XII grossly intact. Motor strength 5/5 in all extremities. Sensory grossly intact. Cerebellar exam normal. Normal gait. Vital Signs: 14:00 BP 159 / 72; Pulse 88; Resp 16 S; Temp 98.0(O); Pulse Ox 97% on R/A; Weight 88.45 kg jd3 (R); Height 5 ft. 11 in. (180.34 cm) (R); Pain 8/10; 15:57 BP 163 / 79; Pulse 72; Resp 16; Pulse Ox 98% ; bp 14:00 Body Mass Index 27.20 (88.45 kg, 180.34 cm) jd3 MDM: 14:03 Patient medically screened. jr8 16:04 Data reviewed: vital signs, nurses notes, lab test result(s), radiologic studies, CT jr8 scan, and as a result, I will discharge patient. Data interpreted: Pulse oximetry: on room air is 98 %. Interpretation: normal. Counseling: I had a detailed discussion with the patient and/or guardian regarding: the historical points, exam findings, and any diagnostic results supporting the discharge/admit diagnosis, lab results, radiology results, the need for outpatient follow up, a urologist, to return to the emergency department if symptoms worsen or persist or if there are any questions or concerns that arise at home. ED course: Discussed with patient and that he has lobulated structure in bladder that needs direct visualization with cystoscopy. Recommended f/u with urology for this to r/o bladder cancer . 03/19 14:25 Order name: Basic Metabolic Panel; Complete Time: 15:19 8 03/19 14:25 Order name: CBC with Diff; Complete Time: 14:51 8 03/19 14:25 Order name: Hepatic Function; Complete Time: 15:19 8 03/19 14:25 Order name: Urine Microscopic Only; Complete Time: 15:45 8 03/19 15:18 Order name: Urine Dipstick--Ancillary (enter results); Complete Time: 15:45 eb 03/19 15:19 Order name: CT Abd/Pelvis - IV Contrast Only; Complete Time: 16:03 8 03/19 14:25 Order name: IV Saline Lock; Complete Time: 15:11 8 03/19 14:25 Order name: Labs collected and sent; Complete Time: 15:11 8 03/19 14:25 Order name: Urine Dipstick-Ancillary (obtain specimen); Complete Time: 15:11 jr8 Administered Medications: No medications were administered Disposition: 17:22 Co-signature as Attending Physician, Chino Ariza MD. rn Disposition: 03/19/20 16:05 Discharged to Home. Impression: Hematuria. - Condition is Stable. - Discharge Instructions: Hematuria, Adult. - Medication Reconciliation Form, Thank You Letter, Antibiotic Education, Prescription Opioid Use form. - Follow up: Sea Oscar MD; When: 1 - 2 days; Reason: Recheck today's complaints, Continuance of care, Re-evaluation by your physician. - Problem is new. - Symptoms are unchanged. Signatures: Dispatcher [employer] EDMS Chino Ariza MD MD rn Roszak, Josh, PA PA jr8 Darrell Harris RN RN jd3 Peltier, Brian, RN RN bp Corrections: (The following items were deleted from the chart) 16:24 16:05 03/19/2020 16:05 Discharged to Home. Impression: Hematuria. Condition is Stable. bp Forms are Medication Reconciliation Form, Thank You Letter, Antibiotic Education, Prescription Opioid Use. Follow up: Sea Oscar; When: 1 - 2 days; Reason: Recheck today's complaints, Continuance of care, Re-evaluation by your physician. Problem is new. Symptoms are unchanged. jr8
--- NOTE | 2020-03-19 16:06 | ER ---
Nurse's Notes [facility] Name: Juan A Lewis Age: 75 yrs Sex: Male : 1945 Arrival Date: 03/19/2020 Time: 13:51 Bed 20 Private MD: Chris Stevenson Diagnosis: Hematuria Presentation: 03/19 13:54 Chief complaint: Patient states: "night before yesterday I was straining so hard when I jd3 used the bathroom that I started having blood in my urine. it has continued today too. I am having blood still in my urine.". Coronavirus screen: At this time, the client does not indicate any symptoms associated with coronavirus-19. Ebola Screen: Patient negative for fever greater than or equal to 101.5 degrees Fahrenheit, and additional compatible Ebola Virus Disease symptoms. Initial Sepsis Screen: Does the patient meet any 2 criteria? No. Patient's initial sepsis screen is negative. Does the patient have a suspected source of infection? No. Patient's initial sepsis screen is negative. Risk Assessment: Do you want to hurt yourself or someone else? Patient reports no desire to harm self or others. Onset of symptoms was March 16, 2020. 13:54 Method Of Arrival: Ambulatory j 13:54 Acuity: CLYDE 3 jd3 Triage Assessment: 14:00 General: Appears distressed, uncomfortable, Behavior is cooperative, appropriate for bp age, anxious. Pain: Denies pain. EENT: No deficits noted. Neuro: No deficits noted. Cardiovascular: No deficits noted. Respiratory: No deficits noted. GI: No signs and/or symptoms were reported involving the gastrointestinal system. : Reports HEMATURIA. Derm: No deficits noted. Musculoskeletal: No deficits noted. Historical: - Allergies: 14:00 No Known Allergies; jd3 - Home Meds: 14:00 aspirin 81 mg Oral chew [Active]; gabapentin 300 mg Oral cap 1 cap daily [Active]; jd3 riluzole 50 mg Oral tab 1 tab every 12 hours [Active]; Breo Ellipta 100-25 mcg/dose inhalation dsdv [Active]; - PMHx: 14:00 ALS; Myocardial infarction; Anxiety; jd3 - PSHx: 14:00 heart stents x 2; hemorrhoid; back surgery; jd3 - Immunization history:: Adult Immunizations unknown. - Social history:: Smoking status: unknown. Screenin:00 Abuse screen: Denies threats or abuse. Denies injuries from another. Nutritional bp screening: No deficits noted. Tuberculosis screening: No symptoms or risk factors identified. Fall Risk None identified. Assessment: 14:00 General: SEE TRIAGE NOTE. bp 15:36 Reassessment: PT TO CT. bp 15:57 Reassessment: PT RETURNED FROM CT. ALL CURRENT ORDERS COMPLETED. bp 16:23 Reassessment: PT D/C HOME AMBULATORY WITH FAMILY, DX WITH HEMATURIA. bp Vital Signs: 14:00 BP 159 / 72; Pulse 88; Resp 16 S; Temp 98.0(O); Pulse Ox 97% on R/A; Weight 88.45 kg jd3 (R); Height 5 ft. 11 in. (180.34 cm) (R); Pain 8/10; 15:57 BP 163 / 79; Pulse 72; Resp 16; Pulse Ox 98% ; bp 14:00 Body Mass Index 27.20 (88.45 kg, 180.34 cm) jd3 ED Course: 13:51 Patient arrived in ED. ag5 13:51 Chris Stevenson DO is Private Physician. ag5 13:56 Triage completed. jd3 14:00 Patient has correct armband on for positive identification. Bed in low position. Call bp light in reach. Side rails up X2. Adult w/ patient. 14:01 Arm band placed on. jd3 14:03 Miles Garcia PA is PHCP. jr8 14:03 Chino Ariza MD is Attending Physician. jr8 14:15 Gaudencio Ha, PRAMOD is Primary Nurse. bp 14:40 Inserted saline lock: 20 gauge in left forearm, using aseptic technique. Blood bp collected. 15:43 CT Abd/Pelvis - IV Contrast Only In Process Unspecified. EDMS 16:05 Sea Oscar MD is Referral Physician. jr8 16:23 No provider procedures requiring assistance completed. IV discontinued, intact, bp bleeding controlled, No redness/swelling at site. Pressure dressing applied. Administered Medications: No medications were administered Outcome: 16:05 Discharge ordered by . jr8 16:23 Discharged to home ambulatory. bp 16:23 Condition: stable 16:23 Discharge instructions given to patient, Instructed on discharge instructions, follow up and referral plans. Demonstrated understanding of instructions, follow-up care. 16:24 Patient left the ED. bp Signatures: Dispatcher [employer] EDMS Miles Garcia PA PA jr8 Darrell Harris RN RN jd3 Gaudencio Ha RN RN bp Bernice Cook ag5
[2020-03-19 16:31] VITALS: TEMP 98
[2020-03-19 16:33] VITALS: BP 163/79; O2SAT 98
== END 2020-03-19 16:24 | disposition home or self-care (01) ==
LOC: ER 13:49
DX: R31.9 Hematuria, unspecified (principal); F41.9 Anxiety disorder, unspecified; I25.2 Old myocardial infarction; Z95.818 Presence of other cardiac implants and grafts; Z79.82 Long term (current) use of aspirin
CPT/HCPCS: 85025; 80048; 36415; 80076; 74177; 99283; Q9967; 81003; 81015

== ENCOUNTER 2020-09-01 12:03 | Observation (INO) | payer OTHER ==
--- NOTE | 2020-09-01 14:04 | RAD REPORT ---
EXAM DESCRIPTION: RAD - Chest Single View - 09/01/2020 1:41 pm CLINICAL HISTORY: DYSPNEA COMPARISON: Two view chest August 23 TECHNIQUE: AP portable chest image was obtained 09/01/2020 1:41 pm . FINDINGS: Interstitial lung disease is present similar to the comparison study. Patchy opacities are present in the lateral aspect of each mid lung field. This is probably chronic scarring. Right hilar granulomatous calcifications are present. Heart and vasculature are normal. No measurable pleural effusion and no pneumothorax. No acute bony abnormality seen. No acute aortic findings suspected. IMPRESSION: Chronic interstitial lung disease is present. Patchy mid lung field opacification has no t clearly changed.
[2020-09-01 14:24] LABS: Absolute Lymphocytes (CBC) 0.5 K/uL (0.7-4.9); Basophils % 0.5 % (0-1.3); Hematocrit 35.2 % (39.6-49.0); Lymphocytes % 9.7 % (15.3-44.8); MPV 8.3 fL (7.6-11.3); RBC Red Blood Cell Count 3.53 M/uL (4.33-5.43)
[2020-09-01 14:37] LABS: ALT/SGPT 50 U/L (12-78); AST/SGOT 31 U/L (15-37); Albumin 3.9 g/dL (3.4-5.0); Alkaline Phosphatase 93 U/L (45-117); BUN Blood Urea Nitrogen 18 mg/dL (7-18); Bicarbonate 32 mmol/L (21-32); Bilirubin Direct 0.2 mg/dL (0-0.2); Bilirubin Total 0.8 mg/dL (0.2-1.0); Glucose Level 91 mg/dL (74-106); Magnesium 2.2 mg/dL (1.8-2.4); NT PRO-BNP 33 pg/mL (<450); Potassium 4.2 mmol/L (3.5-5.1); Protein, Total 7.7 g/dL (6.4-8.2); Sodium Level 134 mmol/L (136-145); Troponin (Emerg Dept Use Only) < 0.02 ng/mL (0.0-0.045)
--- NOTE | 2020-09-01 14:44 | RAD REPORT ---
EXAM DESCRIPTION: CT - Chest For Pe Angio - 09/01/2020 2:11 pm CLINICAL HISTORY: DYSPNEA DYSPNEA , 2 week history of shortness of breath, history of coronary artery stenting COMPARISON: Chest For Pe Angio dated 11/13/2019; Chest Single View dated 09/01/2020 TECHNIQUE: Dynamically enhanced 3 mm thick images of the chest were obtained during administration o f approximately 150mL Isovue 370 IV contrast. Coronal and oblique MIP reconstruction images were gene rated and reviewed. Exam utilizes a protocol to evaluate the pulmonary arterial tree. All CT scans are performed using dose optimization technique as appropriate and may include automated exposure control or mA/KV adjustment according to patient size. FINDINGS: No pulmonary emboli are identified. The aorta as imaged shows no acute or suspicious finding. No pericardial thickening or effusion. No c ardiomegaly. No mass or consolidation of the lung parenchyma. Mild diffuse interstitial prominence. Significant in terstitial edema or infiltrate are unlikely. Scarring changes are mild in severity. No pleural effusi on or pleural thickening. No mediastinal or hilar suspicious masses. No chest wall masses or abnormal axillary lymphadenopathy. Calcified pleural plaquing changes are present in the anterior chest mid and lower portion without associated or enlarging soft tissue mass. Bilateral shoulder joint degenerative changes are present worse on the right. Left shoulder is only p artially imaged. IMPRESSION: No pulmonary emboli identified. No focal mass or worrisome lung parenchymal finding. No significant interstitial edema or infiltrate identified.
[2020-09-01] MEDS ORDERED: dexAMETHasone 10 MG/ML VIAL ONE (16:16)
--- NOTE | 2020-09-01 16:56 | P.HP ---
Certification for Inpatient Patient admitted to: Observation With expected LOS: <2 Midnights Practitioner: I am a practitioner with admitting privileges, knowledge of patient current condition, hospital course, and medical plan of care. 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 This has been worsening over the past 1-2 weeks, significantly worse over the past few days. He reports still SOB despite using his NIV at home. He denies any fevers/chills, +mild productive cough, no chest pain, no abdominal pain, no nausea/vomiting. He reports he was told this may be due to his ALS being more progressive. Workup in the ED: CXR and CTA without PE or other acute cardiopulmonary process. Labs rather unremarkable. He was noted to be tachypneic into the 40s Allergies No Known Allergies Allergy (Verified 11/13/19 22:46) Home Medications: Ascorbic Acid [Vitamin C] 1,000 mg PO DAILY 11/13/19 Aspirin [Ecotrin 81 MG] 81 mg PO DAILY 11/13/19 Docusate [Colace Cap] 100 mg PO DAILYPRN PRN 11/13/19 Fluticasone Propionate [Flovent Diskus] 50 mcg IH BID 11/13/19 Fluticasone/Vilanterol [Breo Ellipta 200-25 Mcg INH] 1 each IH DAILY 11/13/19 Gabapentin 2 cap PO TID 11/13/19 Levosimendan 1 mg PO BID 11/13/19 Loratadine [Claritin] 10 mg PO DAILY 11/13/19 Riluzole 50 mg PO BID 11/13/19 Simethicone 125 mg PO DAILYPRN PRN 11/13/19 Tamsulosin HCl 0.4 mg PO DAILY 11/13/19 Vitamin E (Dl,Tocopheryl Acet) [Vitamin E] 1,000 unit PO DAILY 11/13/19 - Past Medical/Surgical History Diabetic: No -: heart stents on left main 1996 -: heart stent on right coronary 1997 -: ALS -: lower back sx -: hemoroid sx -: cyst removal on wrist -: finger sx - Family History Brother -: Heart disease Mother -: Stroke Notes: ALZHIEMERS - Social History Smoking Status: Former smoker Alcohol use: No CD- Drugs: No Caffeine use: No Place of Residence: Home Review of Systems 10-point ROS is otherwise unremarkable Physical Examination - Studies Laboratory Data (last 24 hrs) 09/01/20 13:44: WBC 5.40, Hgb 11.8 L, Hct 35.2 L, Plt Count 176 09/01/20 13:44: Sodium 134 L, Potassium 4.2, BUN 18, Creatinine 0.49 L, Glucose 91, Magnesium 2.2, Total Bilirubin 0.8, AST 31, ALT 50, Alkaline Phosphatase 93 Assessment and Plan - Advance Directives Does patient have a Living Will: Yes Does patient have a Durable POA for Healthcare: Yes Physician Review Additional Text: Physical Exam: Gen: mild distress, tachypneic HEENT: normal conjunctiva, sclera anicteric CV: RRR, no murmur Pulm: diminished air movement, no crackles/rales Abd: soft, NTND Ext: trace edema to ankles bilaterally Neuro: AAOx3, weakness/minimal strength in b/l hands/wrists psych: normal affect Problem List Shortness of breath, Dyspnea on exertion ALS SHELL CAD s/p stent -will bring patient in for obs -discussed with pulm - ABG now, patient to use home non-invasive ventilator overnight to evaluate -may be progressing ALS -morphine XR 5mg BID to help with air hunger -pulm suggested may need comfort care / hospice -obtain home medications, restart as appropriate Code: DNR Dispo: anticipate dc home tomorrow, possible hospice - will discuss further with pulm and patient tomorrow Time Spent Managing Pts Care (In Minutes): 60
[2020-09-01 17:31] LABS: Blood Gas Oxyhemoglobin 95.8 % (94-97); Blood O2 Saturation 97.9 % (92-98.5)
--- NOTE | 2020-09-01 17:38 | EDPHYS ---
Physician Documentation [facility] Name: Juan A Lewis Age: 75 yrs Sex: Male : 1945 Arrival Date: 09/01/2020 Time: 12:13 Bed 14 Private MD: Karlos Jones C ED Physician Jayro Saenz Historical: - Allergies: 09/01 12:28 No Known Allergies; ll1 - PMHx: 12:28 ALS; Anxiety; Myocardial infarction; CAD; Sleep Apnea; ll1 - PSHx: 12:28 Heart stents; ll1 - Immunization history:: Flu vaccine is up to date. - Social history:: Smoking status: Patient denies any tobacco usage or history of. Patient/guardian denies using tobacco, the patient reports quitting approximately 25 years ago. Vital Signs: 12:24 BP 217 / 94; Pulse 76; Resp 40; Temp 98.6; Pulse Ox 96% on R/A; Weight 74.84 kg; Height ll1 5 ft. 11 in. (180.34 cm); Pain 0/10; 12:42 BP 141 / 50; Pulse 87; Resp 36; Pulse Ox 98% on R/A; vg1 13:00 BP 126 / 60; Pulse 76; Resp 44; Pulse Ox 98% on R/A; vg1 14:02 Resp 48; Pulse Ox 97% on R/A; tw2 16:00 BP 94 / 55; Pulse 77; Resp 17; Pulse Ox 100% ; jl7 17:16 BP 148 / 75; Pulse 77; Resp 25; Pulse Ox 99% ; jl7 12:24 Body Mass Index 23.01 (74.84 kg, 180.34 cm) ll1 14:02 pt taking shallow breaths, pt placed on o2 nc at this time tw2 MDM: 13:41 Patient medically screened. ps1 09/01 13:24 Order name: Basic Metabolic Panel ps1 09/01 13:24 Order name: CBC with Diff; Complete Time: 15:05 ps1 09/01 13:24 Order name: LFT's ps1 09/01 13:24 Order name: Magnesium ps1 09/01 13:24 Order name: NT PRO-BNP ps1 09/01 13:24 Order name: Troponin (emerg Dept Use Only); Complete Time: 15:05 ps1 09/01 13:24 Order name: Basic Metabolic Panel; Complete Time: 15:05 [facility] 09/01 13:24 Order name: Liver (Hepatic) Function; Complete Time: 15:05 [facility] 09/01 13:24 Order name: Magnesium; Complete Time: 15:05 [facility] 09/01 13:24 Order name: NT PRO-BNP; Complete Time: 15:05 [facility] 09/01 16:53 Order name: ABG Arterial Blood Gas [facility] 09/01 19:11 Order name: COVID-19 : Document "Date of Symptom Onset" if Symptomatic. iw 09/01 19:34 Order name: CORONAVIRUS [facility] 09/01 13:24 Order name: XRAY Chest (1 view); Complete Time: 14:33 [facility] 09/01 13:24 Order name: EKG; Complete Time: 13:28 [facility] 09/01 13:24 Order name: Cardiac monitoring; Complete Time: 13:25 [facility] 09/01 13:24 Order name: EKG - Nurse/Tech; Complete Time: 13:45 [facility] 09/01 13:24 Order name: IV Saline Lock; Complete Time: 13:45 [facility] 09/01 13:24 Order name: Labs collected and sent; Complete Time: 13:45 [facility] 09/01 13:24 Order name: O2 Per Protocol; Complete Time: 13:25 [facility] 09/01 13:24 Order name: O2 Sat Monitoring; Complete Time: 13:25 [facility] 09/01 13:24 Order name: CT Chest For PE Angio; Complete Time: 15:05 [facility] 09/01 16:53 Order name: CONS Physician Consult [facility] 09/01 20:15 Order name: SARS-COV-2 RT PCR [facility] Administered Medications: 15:55 Drug: Decadron - Dexamethasone 10 mg Route: IVP; Site: left antecubital; jl7 16:20 Follow up: Response: No adverse reaction jl7 18:05 Drug: Tylenol 650 mg Route: PO; jl7 18:30 Follow up: Response: No adverse reaction jl7 Disposition: 09/01/20 17:37 Hospitalization ordered by Luis Ariza for Inpatient Admission. Preliminary diagnosis are Shortness of breath, Amyotrophic lateral sclerosis. - Bed requested for Telemetry/MedSurg (Inpatient). - Status is Inpatient Admission. iw - Condition is Stable. - Problem is an ongoing problem. - Symptoms have worsened. Addendum: 09/20/2020 07:10 Addendum: 75 y/o M presenting with likely exacerbation of ALS. States that he has been p s1 evaluated by multiple providers for this condition. States that over the last week or so his breathing has been worse. COVID pandemic is prevalent. Patient has resting tachypnea however has good O2 sats 99%., ROS: no cough, fever, CP, abd pain, extremity weakness or swelling. Does attest to MARIAMA and tachypnea. PHY: NCAT, No distress but tachypnea. PEERL. EOMI, RRR, normal pulse, resting tachypnea, clear lungs, abd soft NT, normal extremities. POC: evaluate for infectious causes given pandemic, PE rule out, Will require admission 2/2 breathing pattern. Negative PE study and no confirmation of PNA. No ACS. Start steroids r/t ALS. . Signatures: Dispatcher [employer] EDMS Hilaria Mancuso RN RN dw Williams, Irene, RN RN iw Paula Miner RN RN jl7 Jayro Saenz MD MD ps1 Rajiv Jiang RN RN ll1 Corrections: (The following items were deleted from the chart) 09/01 12:29 12:28 Social history: Smoking status: Patient denies any tobacco usage or history of. ll1 ll1 20:18 17:37 Hospitalization Ordered by Luis Ariza MD for Inpatient Admission. Preliminary dw diagnosis is Shortness of breath; Amyotrophic lateral sclerosis. Bed requested for Telemetry/MedSurg (Inpatient). Status is Inpatient Admission. Condition is Stable. Problem is an ongoing problem. Symptoms have worsened. ps1 21:29 20:18 09/01/2020 17:37 Hospitalization Ordered by Luis Ariza MD for Inpatient iw Admission. Preliminary diagnosis is Shortness of breath; Amyotrophic lateral sclerosis. Bed requested for Telemetry/MedSurg (Inpatient). Status is Inpatient Admission. Condition is Stable. Problem is an ongoing problem. Symptoms have worsened. dw
--- NOTE | 2020-09-01 17:38 | ER ---
Nurse's Notes [facility] Name: Juan A Lewis Age: 75 yrs Sex: Male : 1945 Arrival Date: 09/01/2020 Time: 12:13 Bed 14 Private MD: Karlos Jones C Diagnosis: Shortness of breath;Amyotrophic lateral sclerosis Presentation: 09/01 12:24 Chief complaint: Patient states: SOB for [address] Helms for eval. ll1 Tachypnea, but O2 sat. 100%. Coronavirus screen: Client denies travel out of the [place] in the last 14 days. difficulty breathing, fatigue, shortness of breath, Client presents with at least one sign or symptom that may indicate coronavirus-19. Standard/surgical mask placed on the client. Ebola Screen: Patient denies travel to an Ebola-affected area in the 21 days before illness onset. Initial Sepsis Screen: Does the patient meet any 2 criteria? RR > 20 per min. No. Patient's initial sepsis screen is negative. Does the patient have a suspected source of infection? Yes: Productive cough/pneumonia. Risk Assessment: Do you want to hurt yourself or someone else? Patient reports no desire to harm self or others. Onset of symptoms was August 18, 2020. 12:24 Method Of Arrival: Wheelchair ll1 12:24 Acuity: CLYDE 2 ll1 Triage Assessment: 12:43 Respiratory: the patient has moderate shortness of breath. vg1 Historical: - Allergies: 12:28 No Known Allergies; ll1 - PMHx: 12:28 ALS; Anxiety; Myocardial infarction; CAD; Sleep Apnea; ll1 - PSHx: 12:28 Heart stents; ll1 - Immunization history:: Flu vaccine is up to date. - Social history:: Smoking status: Patient denies any tobacco usage or history of. Patient/guardian denies using tobacco, the patient reports quitting approximately 25 years ago. Screenin:42 Abuse screen: Denies threats or abuse. Nutritional screening: No deficits noted. vg1 Tuberculosis screening: No symptoms or risk factors identified. Fall Risk No fall in past 12 months (0 pts). No secondary diagnosis (0 pts). IV access (20 points). Ambulatory Aid- Crutches/Cane/Walker (15 pts). Gait- Normal/Bed Rest/Wheelchair (0 pts) Mental Status- Oriented to own ability (0 pts). Total Cain Fall Scale indicates Low Risk Score (25-44 pts). Assessment: 12:41 General: Appears in no apparent distress. uncomfortable, Behavior is calm, cooperative. vg1 Pain: Complains of pain in headache Pain currently is 3 out of 10 on a pain scale. Pain began 30 min ago. Neuro: Level of Consciousness is awake, alert, obeys commands, Oriented to person, place, time, situation. Cardiovascular: Patient's skin is warm and dry. Respiratory: Airway is patent Respiratory effort is even, labored, Respiratory pattern is regular, symmetrical, Breath sounds are clear bilaterally. GI: Reports nausea. : No signs and/or symptoms were reported regarding the genitourinary system. EENT: No signs and/or symptoms were reported regarding the EENT system. Derm: Skin is intact, Skin is pink, warm \T\ dry. Musculoskeletal: Circulation, motion, and sensation intact. 13:48 Reassessment: Patient appears in no apparent distress at this time. No changes from vg1 previously documented assessment. Patient and/or family updated on plan of care and expected duration. Pain level reassessed. Patient is alert, oriented x 3, equal unlabored respirations, skin warm/dry/pink. 14:48 Reassessment: Patient appears in no apparent distress at this time. No changes from vg1 previously documented assessment. Patient and/or family updated on plan of care and expected duration. Pain level reassessed. Patient is alert, oriented x 3, equal unlabored respirations, skin warm/dry/pink. 18:00 Reassessment: Pt c/o JONES, rated 5/10, requesting Tylenol, ERD notified, VO for 650 mg jl7 Tylenol PO. 21:28 Cardiovascular: Rhythm is sinus tachycardia. iw Vital Signs: 12:24 BP 217 / 94; Pulse 76; Resp 40; Temp 98.6; Pulse Ox 96% on R/A; Weight 74.84 kg; Height ll1 5 ft. 11 in. (180.34 cm); Pain 0/10; 12:42 BP 141 / 50; Pulse 87; Resp 36; Pulse Ox 98% on R/A; vg1 13:00 BP 126 / 60; Pulse 76; Resp 44; Pulse Ox 98% on R/A; vg1 14:02 Resp 48; Pulse Ox 97% on R/A; tw2 16:00 BP 94 / 55; Pulse 77; Resp 17; Pulse Ox 100% ; jl7 17:16 BP 148 / 75; Pulse 77; Resp 25; Pulse Ox 99% ; jl7 12:24 Body Mass Index 23.01 (74.84 kg, 180.34 cm) ll1 14:02 pt taking shallow breaths, pt placed on o2 nc at this time tw2 ED Course: 12:13 Patient arrived in ED. mr 12:14 Karlos Jones MD is Private Physician. mr 12:27 Triage completed. ll1 12:29 Arm band placed on Patient placed in an exam room, on a stretcher. ll1 12:31 Uzma Wesley RN is Primary Nurse. vg1 12:33 Jayro Saenz MD is Attending Physician. ps1 12:42 Patient has correct armband on for positive identification. Bed in low position. Call vg1 light in reach. Side rails up X2. Adult w/ patient. 13:16 Inserted saline lock: 20 gauge in left antecubital area, using aseptic technique. Blood dh4 collected. 13:41 XRAY Chest (1 view) In Process Unspecified. EDMS 13:46 EKG done, by ED staff, reviewed by Jayro Saenz MD. vg1 14:12 CT Chest For PE Angio In Process Unspecified. EDMS 14:47 NT PRO-BNP Sent. sv 14:47 Magnesium Sent. sv 14:47 LFT's Sent. sv 14:47 Basic Metabolic Panel Sent. sv 14:54 Primary Nurse role handed off by Uzma Wesley RN jl7 14:54 Paula Miner RN is Primary Nurse. jl7 17:37 Luis Ariza MD is Hospitalizing Provider. ps1 21:28 No provider procedures requiring assistance completed. Patient admitted, IV remains in iw place. Administered Medications: 15:55 Drug: Decadron - Dexamethasone 10 mg Route: IVP; Site: left antecubital; jl7 16:20 Follow up: Response: No adverse reaction jl7 18:05 Drug: Tylenol 650 mg Route: PO; jl7 18:30 Follow up: Response: No adverse reaction jl7 Outcome: 17:37 Decision to Hospitalize by Provider. ps1 21:29 Admitted to Tele accompanied by tech, family with patient, via wheelchair, room 224, iw Report called to PRAMOD Stewart 21:29 Condition: good 21:29 Discharge instructions given to patient, family, Instructed on the need for admit, Demonstrated understanding of instructions. 21:29 Patient left the ED. iw Signatures: Dispatcher [employer] EDChyna Russell, RN RN celeste Mandujano, Karrie martins Niru Henson, RN PRAMOD iw Jenna Conklin, RN RN [email or web address] Paula Miner RN PRAMOD jl7 Jayro Saenz MD MD [facility] Faustino Westbrook Uzma Wesley RN RN vg1 Rajiv Jiang RN RN ll1 Corrections: (The following items were deleted from the chart) 12:29 12:28 Social history: Smoking status: Patient denies any tobacco usage or history of. ll1 ll1
[2020-09-01] MEDS ORDERED: ACETAMINOPHEN 325 MG TABLET ONE (18:16)
[2020-09-01] MEDS ORDERED: MORPHINE *EXTENDED RELEASE* 15 MG TAB PO SCH (21:43)
[2020-09-02 01:15] VITALS: BMI 22.9
[2020-09-02 06:47] LABS: Absolute Lymphocytes (CBC) 0.5 K/uL (0.7-4.9); Basophils % 0.2 % (0-1.3); Hematocrit 32.2 % (39.6-49.0); Lymphocytes % 6.7 % (15.3-44.8); MPV 8.2 fL (7.6-11.3); RBC Red Blood Cell Count 3.28 M/uL (4.33-5.43)
[2020-09-02 07:12] LABS: ALT/SGPT 47 U/L (12-78); AST/SGOT 30 U/L (15-37); Albumin 3.6 g/dL (3.4-5.0); BUN Blood Urea Nitrogen 19 mg/dL (7-18); Bicarbonate 30 mmol/L (21-32); Bilirubin Total 0.9 mg/dL (0.2-1.0); Glucose Level 107 mg/dL (74-106); Magnesium 2.2 mg/dL (1.8-2.4); Potassium 4.2 mmol/L (3.5-5.1); Protein, Total 7.4 g/dL (6.4-8.2); Sodium Level 134 mmol/L (136-145)
[2020-09-02] MEDS ORDERED: MORPHINE 15 MG IR TAB PO PRN (08:35)
[2020-09-02] MEDS: FLUTICASONE PROPIONATE NAS SCH ×2 (09:00→21:28)
[2020-09-02] MEDS ORDERED: PANTOPRAZOLE 40MG TABLET PO SCH (09:00)
[2020-09-02] MEDS ORDERED: SERTRALINE HCL 50 MG TAB PO SCH (09:00)
[2020-09-02] MEDS ORDERED: ASPIRIN EC 81 MG TAB PO SCH (09:00)
[2020-09-02] MEDS ORDERED: LORATADINE 10 MG TAB PO SCH ×2 (09:00→21:00)
[2020-09-02] MEDS ORDERED: Fluticasone/Vilanterol (Breo Ellipta) 200-25 Mcg Inh IH SCH (09:00)
[2020-09-02] MEDS ORDERED: MORPHINE SULF 10 MG/5 ML OSYR PO PRN (11:22)
--- NOTE | 2020-09-02 12:57 | P.PN ---
Subjective Date of Service: 09/02/20 Chief Complaint: SOB, tachypnea No changes still tachypneic patient was admitted from my clinic yesterday with respiratory distress I he is tolerating his noninvasive ventilator blood gases are satisfactory continues to remain anxious and tachypneic Review of Systems General: Weakness Respiratory: Shortness of Breath Physical Examination - Vital Signs Temperature: 97.1 F Blood Pressure: 149/68 Pulse: 75 Respirations: 25 Pulse Ox (%): 96 - Physical Exam General: Alert, Oriented x3, Moderate distress HEENT: Other Respiratory: Clear to auscultation bilaterally, Diminished Cardiovascular: No edema, Regular rate/rhythm - Studies Laboratory Data (last 24 hrs) 09/01/20 13:44: WBC 5.40, Hgb 11.8 L, Hct 35.2 L, Plt Count 176 09/01/20 13:44: Sodium 134 L, Potassium 4.2, BUN 18, Creatinine 0.49 L, Glucose 91, Magnesium 2.2, Total Bilirubin 0.8, AST 31, ALT 50, Alkaline Phosphatase 93 Assessment & Plan - Problems (Diagnosis) (1) Respiratory failure Status: Acute Plan: Patient is 75 years of age admitted with respiratory failure from amyotrophic lateral sclerosis patient is hypoxic mildly hypercapnic still continues to remain tachypneic I recommend low-dose morphine at 5 mg 3 times a day will titrate up to comfort CT scan no evidence of thromboembolism no evidence of an infection possible discharge tomorrow be tolerates low-dose narcotic vital signs satisfactory Qualifiers: Chronicity: acute on chronic
--- NOTE | 2020-09-02 18:04 | P.PN ---
Subjective Date of Service: 09/02/20 Chief Complaint: SOB, tachypnea Subjective: No new changes (slight improvement of breathing, still remains tachypneic) Review of Systems 10-point ROS is otherwise unremarkable Physical Examination - Vital Signs Temperature: 98.4 F Blood Pressure: 103/51 Pulse: 51 Respirations: 18 Pulse Ox (%): 95 Assessment & Plan Physician Review Additional Text: Physical Exam: Gen: NAD, tachypneic HEENT: normal conjunctiva, sclera anicteric CV: RRR, no murmur Pulm: diminished air movement, no crackles/rales Abd: soft, NTND Ext: trace edema to ankles bilaterally Neuro: AAOx3, weakness/minimal strength in b/l hands/wrists Problem List Shortness of breath, Dyspnea on exertion ALS SHELL CAD s/p stent -pulm consulted, feels this is due to ALS -unable to get morphine last night due to dosage issues, will give liquid today -morphine XR 5mg to help with air hunger, can go up 10mg if no response -restarted home medications Code: DNR Dispo: anticipate dc home tomorrow Time Spent Managing Pts Care (In Minutes): 35
[2020-09-02] MEDS ORDERED: LORATADINE PO SCH (21:00)
[2020-09-02] MEDS: MORPHINE SULF 10 MG/5 ML OSYR FT PRN (21:26)
[2020-09-03] MEDS: MORPHINE SULF 10 MG/5 ML OSYR FT PRN (03:52)
[2020-09-03 07:43] LABS: BUN Blood Urea Nitrogen 23 mg/dL (7-18); Bicarbonate 31 mmol/L (21-32); Glucose Level 98 mg/dL (74-106); Phosphorus 3.1 mg/dL (2.5-4.9); Potassium 4.2 mmol/L (3.5-5.1); Sodium Level 134 mmol/L (136-145)
[2020-09-03] MEDS ORDERED: SERTRALINE HCL 25 MG TAB PO SCH (09:00)
[2020-09-03] MEDS ORDERED: PANTOPRAZOLE DR 40 MG TABLET PO SCH (09:00)
[2020-09-03] MEDS ORDERED: ASPIRIN EC 81 MG TABLET PO SCH (09:00)
--- NOTE | 2020-09-03 09:22 | P.DS ---
Admission Date: 09/01/20 Discharge Date: 09/03/20 Disposition: ROUTINE DISCHARGE Discharge Condition: FAIR Reason for Admission: SOB, tachypnea Consultations: Pulm - Dr. Helms Procedures: CXR (09/01): Chronic interstitial lung disease is present. Patchy mid lung field opacification has not clearly changed. CTA Chest (09/01): No pulmonary emboli identified. No focal mass or worrisome lung parenchymal finding. No significant interstitial edema or infiltrate identified. Calcified pleural plaquing changes are present in the anterior chest mid and lower portion without associated or enlarging soft tissue mass. 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 This has been worsening over the past 1-2 weeks, significantly worse over the past few days. He reports still SOB despite using his NIV at home. He denies any fevers/chills, +mild productive cough, no chest pain, no abdominal pain, no nausea/vomiting. He reports he was told this may be due to his ALS being more progressive. Workup in the ED: CXR and CTA without PE or other acute cardiopulmonary process. Labs rather unremarkable. He was noted to be tachypneic into the 40s Hospital Course: Imaging did not reveal an acute cardiopulmonary process causing the patient's symptoms. Pulmonology was consulted, and patient was symptomatically treated with PO morphine. Patient had some mild improvement in his symptoms, however, he did have some mild nausea associated with the morphine. He was given zofran with relief. Patient was discharged home with prescription for 5mg TID morphine for air hunger /dyspnea and zofran. He is to follow up with Pulmonology in ~1-2 weeks. Vital Signs/Physical Exam: Physical Exam: Gen: NAD, mild tachypnea HEENT: normal conjunctiva, sclera anicteric CV: RRR, no murmur Pulm: diminished air movement, no crackles/rales, shallow respirations Abd: soft, NTND Ext: trace edema to ankles bilaterally Neuro: AAOx3, weakness/minimal strength in b/l hands/wrists Temp Pulse Resp BP Pulse Ox 97.7 F 78 22 H 152/82 H 96 03/19/21 08:00 09/03/20 08:00 09/03/20 08:00 09/03/20 08:00 09/03/20 08:00 Laboratory Data at Discharge: WBC 7.20 K/uL (4.3-10.9) D 09/02/20 05:38 Hgb 11.3 g/dL (13.6-17.9) L 09/02/20 05:38 Hct 32.2 % (39.6-49.0) L 09/02/20 05:38 Plt Count 155 K/uL (152-406) 09/02/20 05:38 Sodium 134 mmol/L (136-145) L 09/03/20 06:33 Potassium 4.2 mmol/L (3.5-5.1) 09/03/20 06:33 BUN 23 mg/dL (7-18) H 09/03/20 06:33 Creatinine 0.43 mg/dL (0.55-1.3) L 09/03/20 06:33 Glucose 98 mg/dL (74-106) 09/03/20 06:33 Phosphorus 3.1 mg/dL (2.5-4.9) 09/03/20 06:33 Magnesium 2.2 mg/dL (1.8-2.4) 09/02/20 05:38 Total Bilirubin 0.9 mg/dL (0.2-1.0) 09/02/20 05:38 AST 30 U/L (15-37) 09/02/20 05:38 ALT 47 U/L (12-78) 09/02/20 05:38 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 09/02/20 05:38 Home Medications: Aspirin [Ecotrin 81 MG] 81 mg PO DAILY 11/13/19 Fluticasone/Vilanterol [Breo Ellipta 200-25 Mcg INH] 1 each IH DAILY 11/13/19 Loratadine [Claritin*] 10 mg PO DAILY 11/13/19 Riluzole 50 mg PO BID 11/13/19 Azelastine HCl 2 spray IS BID 09/01/20 Pantoprazole [Protonix Tab*] 1 tab PO DAILY 09/01/20 Sertraline [Zoloft*] 25 mg PO DAILY 09/01/20 Acetaminophen [Tylenol Extra Strength] 1 tab PO BEDTIME 09/02/20 Morphine Sulfate 0.25 ml FT TID PRN 14 Days #12 ml 09/03/20 Ondansetron [Zofran] 4 mg PO Q8H PRN 14 Days #30 tab 09/03/20 New Medications: Morphine Sulfate 0.25 ml FT TID PRN 14 Days #12 ml PRN Reason: Shortness Of Breath Ondansetron [Zofran] 4 mg PO Q8H PRN 14 Days #30 tab PRN Reason: Nausea / Vomiting Physician Discharge Instructions: Your shortness of breath is due to your ALS. Dr. Helms will send a prescription for morphine and zofran to help with your breathing. Otherwise, continue your home medications as previously prescribed. Follow up with Dr. Helms in ~1 week. Diet: Jevity Activity: Ad vivek Followup: Nickolas Helms MD [ACTIVE - CAN ADMIT] - Justin Jones MD [Primary Care Provider] - Time spent managing pt's care (in minutes): 40
[2020-09-03] MEDS ORDERED: ONDANSETRON 4 MG/2 ML VIAL IV ONE (09:29)
--- NOTE | 2020-09-03 09:35 | P.PN ---
Subjective Date of Service: 09/03/20 Chief Complaint: SOB, tachypnea Patient has tolerated low doses of morphine shortness of breath is subjectively improved Review of Systems General: Weakness Respiratory: Shortness of Breath Physical Examination - Vital Signs Temperature: 97.7 F Blood Pressure: 152/82 Pulse: 78 Respirations: 22 Pulse Ox (%): 96 - Physical Exam General: Alert, Oriented x3, Mild distress Respiratory: Clear to auscultation bilaterally, Diminished Assessment & Plan - Problems (Diagnosis) (1) Respiratory failure Status: Acute Plan: Patient is subjectively doing better as far as a shortness of breath is concerned plan to discharge him on morphine 5 mg p.o. t.i.d. p.r.n. for dyspnea in addition to some Zofran arterial blood gases satisfactory Qualifiers: Chronicity: acute on chronic
[2020-09-03 10:22] VITALS: O2SAT 97
[2020-09-03] MEDS ORDERED: ONDANSETRON 4 MG (ODT) TAB PO ONE (11:43)
[2020-09-03] MEDS ORDERED: MORPHINE SULF 10 MG/5 ML OSYR FT PRN (11:43)
[2020-09-03] MEDS ORDERED: ONDANSETRON 4 MG (ODT) TAB ONE (12:17)
[2020-09-19 11:16] VITALS: BP 149/68; TEMP 97.1
== END 2020-09-03 13:51 | disposition home or self-care (01) ==
LOC: ER 12:03 → ERHOLD 17:08 → 2ND 21:15
PROVIDERS: ADMIT Hospitalist; ATTEND Hospitalist
DX: J96.20 Acute and chronic respiratory failure, unspecified whether with hypoxia or hypercapnia (principal); G12.21 Amyotrophic lateral sclerosis; G47.33 Obstructive sleep apnea (adult) (pediatric); I25.10 Atherosclerotic heart disease of native coronary artery without angina pectoris; Z95.5 Presence of coronary angioplasty implant and graft; Z66 Do not resuscitate; Z20.822 Contact with and (suspected) exposure to COVID-19; R94.31 Abnormal electrocardiogram [ECG] [EKG]; Z87.891 Personal history of nicotine dependence
CPT/HCPCS: 93005; 85025 ×2; 80048 ×2; 36415 ×2; 83735 ×2; 84100; 82565; 80076; 84484; 80053; 83880; 71275; 71045; 97162; 82805; 94760 ×4; 96374; 99285; U0003; J1100; J2405; G0378 ×3

== ENCOUNTER 2020-10-02 04:03 | Inpatient (IN) | payer OTHER ==
[2020-10-02 04:27] LABS: Absolute Lymphocytes (CBC) 0.2 K/uL (0.7-4.9); Hematocrit 38.8 % (39.6-49.0); Lymphocytes % 1.6 % (15.3-44.8); MPV 7.4 fL (7.6-11.3); RBC Red Blood Cell Count 3.92 M/uL (4.33-5.43)
[2020-10-02 04:32] LABS: Protime INR 1.28
[2020-10-02] MEDS ORDERED: NA CHLORIDE 0.9% 1,000 ML ONE (04:50)
[2020-10-02 04:53] LABS: Arterial Blood Carboxyhemoglob 1.1 % (0-1.5); Blood Gas Oxyhemoglobin 96.6 % (94-97); Blood O2 Saturation 98.9 % (92-98.5)
--- NOTE | 2020-10-02 05:04 | EDPHYS ---
Physician Documentation [facility] Name: Juan A Lewis Age: 75 yrs Sex: Male : 1945 Arrival Date: 10/02/2020 Time: 04:05 Bed 2 Private MD: ED Physician Nicolás Howell HPI: 10/02 05:01 This 75 yrs old Male presents to ER via EMS with complaints of Cardiac Arrest.7 05:01 Preceding the arrest, the patient collapsed, was dyspneic. The arrest occurred at home. mh7 Pre-hospital course: The arrest was witnessed by family. Bystanders at the scene did not perform CPR. EMS care prior to arrival: initiation of ACLS, peripheral IV, was successfully placed. intubation was successfully performed, orally, oxygen, by BVM to assist ventilations. 100% by ET tube. ACLS details: Initial rhythm was asystole. The presenting rhythm is normal sinus rhythm. Airway: oral intubation, Medications given by EMS prior to arrival - none, Response to therapy: return of rhythm. Historical: - Allergies: 04:11 No Known Allergies; lp1 - Home Meds: 04:11 aspirin 81 mg Oral chew [Active]; Breo Ellipta 100-25 mcg/dose inhalation dsdv lp1 [Active]; Ecotrin 81 mg daily Oral TbEC [Active]; Experimental pill BID [Active]; Flonase 50 mcg/actuation Nasal spsn [Active]; gabapentin 300 mg Oral cap 1 cap daily [Active]; riluzole 50 mg Oral tab 1 tab every 12 hours [Active]; tamsulosin 0.4 mg Oral cp24 1 cap once daily [Active]; Vitamin C 1,000 mg Oral tab daily [Active]; vitamin E 1,000 unit Oral cap daily [Active]; - PMHx: 04:11 ALS; Anxiety; CAD; Myocardial infarction; Sleep Apnea; lp1 - Immunization history:: Adult Immunizations unknown. - Social history:: Smoking status: unknown. ROS: 05:01 Unable to obtain ROS due to comatose state. 7 Exam: 07:04 Head/Face: Normocephalic, atraumatic. Eyes: Pupils equal round and reactive to light, 7 extra-ocular motions intact. Lids and lashes normal. Conjunctiva and sclera are non-icteric and not injected. Cornea within normal limits. Periorbital areas with no swelling, redness, or edema. 07:04 Neck: Trachea midline, no thyromegaly or masses palpated, and no cervical lymphadenopathy. Supple, full range of motion without nuchal rigidity, or vertebral point tenderness. No Meningismus. Chest/axilla: Normal chest wall appearance and motion. Nontender with no deformity. No lesions are appreciated. Cardiovascular: Regular rate and rhythm with a normal S1 and S2. No gallops, murmurs, or rubs. Normal PMI, no JVD. No pulse deficits. 07:04 Abdomen/GI: Soft, non-tender, with normal bowel sounds. No distension or tympany. No guarding or rebound. No evidence of tenderness throughout. Back: No spinal tenderness. No costovertebral tenderness. Full range of motion. Skin: Warm, dry with normal turgor. Normal color with no rashes, no lesions, and no evidence of cellulitis. 07:04 Constitutional: The patient appears comatose, obviously ill. 07:04 ENT: ETT in place. 07:04 Respiratory: severe repiratory distress is noted, Intubated, Respirations: normal, on ventilator, Breath sounds: rhonchi, that are mild, are scattered, Respiratory rate: 18 07:04 Musculoskeletal/extremity: 07:04 Musculoskeletal/extremity: ROM: no movement, Circulation is intact in all extremities. 07:04 Neuro: Orientation: unable to test, the patient is comatose, Mentation: unable to test, the patient is comatose, Memory: unable to test, the patient is comatose, Cranial nerves: unable to test, the patient is comatose, Cerebellar function: unable to test, the patient is comatose, Motor: unable to test, the patient is comatose, Sensation: unable to test, the patient is comatose, Gait: not tested. seizure activity, is not displayed by the patient, Abnormal movements: there are no abnormal movements. Vital Signs: 04:36 BP 61 / 42; Pulse 100; Resp 16; Temp 98.3; Pulse Ox 98% ; Weight 74.84 kg; rr5 05:03 BP 72 / 49; Pulse 99; Resp 19; Pulse Ox 98% ; rr5 MDM: 05:04 Patient medically screened. [facility] 07:07 Differential diagnosis: arrythmia, cardiac arrest, respiratory arrest. Data reviewed: [facility] vital signs, nurses notes, EMS record, lab test result(s), cardiac enzymes, CBC, electrolytes, EKG, radiologic studies, plain films. Data interpreted: Pulse oximetry: on ventilator is 98 %. Interpretation: acceptable. ED course: Discussed with patient spouse and other family. They want to follow patient's DNR request. They do not want any further resuscitative measures performed.. 10/02 04:06 Order name: Basic Metabolic Panel [facility] 10/02 04:06 Order name: CBC with Diff [facility] 10/02 04:06 Order name: LFT's [facility] 10/02 04:06 Order name: Magnesium [facility] 10/02 04:06 Order name: NT PRO-BNP; Complete Time: 06:52 [facility] 10/02 04:06 Order name: PT-INR; Complete Time: 06:50 [facility] 10/02 04:06 Order name: Troponin (emerg Dept Use Only); Complete Time: 06:52 [facility] 10/02 04:07 Order name: Basic Metabolic Panel; Complete Time: 06:52 [facility] 10/02 04:07 Order name: CBC with Automated Diff; Complete Time: 06:50 [facility] 10/02 04:07 Order name: Liver (Hepatic) Function; Complete Time: 06:52 [facility] 10/02 04:07 Order name: Magnesium; Complete Time: 06:52 [facility] 10/02 04:08 Order name: Arterial Blood Gas [facility] 10/02 04:09 Order name: ABG Arterial Blood Gas; Complete Time: 06:50 [facility] 10/02 04:18 Order name: Blood Culture Adult (2) rr5 10/02 04:06 Order name: XRAY Chest (1 view) [facility] 10/02 04:06 Order name: EKG; Complete Time: 04:07 [facility] 10/02 04:06 Order name: Cardiac monitoring; Complete Time: 04:15 [facility] 10/02 04:06 Order name: EKG - Nurse/Tech; Complete Time: 04:16 [facility] 10/02 04:06 Order name: IV Saline Lock; Complete Time: 04:15 [facility] 10/02 04:06 Order name: Labs collected and sent; Complete Time: 04:15 [facility] 10/02 04:06 Order name: O2 Per Protocol; Complete Time: 04:15 [facility] 10/02 04:06 Order name: O2 Sat Monitoring; Complete Time: 04:15 [facility] 10/02 04:23 Order name: Glucose, Ancillary Testing [facility] 10/02 04:30 Order name: Lactate lp1 10/02 04:30 Order name: Lactate; Complete Time: 06:50 [facility] 10/02 05:38 Order name: SARS-COV-2 RT PCR; Complete Time: 06:50 [facility] 10/02 05:39 Order name: NPO [facility] Administered Medications: 04:40 Drug: NS 0.9% 1000 ml Route: IV; Rate: 1000 ml; Site: left forearm; rr5 07:00 Follow up: IV Status: Completed infusion; IV Intake: 1000ml bp Disposition: 10/02/20 05:04 Hospitalization ordered by Karlos Jones for Inpatient Admission. Preliminary diagnosis are Cardiac Arrest, Respiratory Failure. - Bed requested for [facility] ER HOLD. - Status is Inpatient Admission. lp1 - Condition is Critical. - Problem is new. - Symptoms have improved. Signatures: Dispatcher [employer] [facility] Zaria Vaz RN RN lp1 Nancy Wesley RN RN cg Kamlesh Doss RN RN Luis Lieberman RN RN rr5 Nicolás Howell MD MD 7 Gaudencio Ha RN bp Corrections: (The following items were deleted from the chart) 04:23 04:20 CORONAVIRUS+MR.LAB.MESHAZ ordered. [facility] 05:31 05:04 Hospitalization Ordered by Luis Ariza MD for Inpatient Admission. Preliminary [facility] diagnosis is Cardiac Arrest; Respiratory Failure. Bed requested for Intensive Care Unit. Status is Inpatient Admission. Condition is Critical. Problem is new. Symptoms have improved. [facility] 06:10 05:31 10/02/2020 05:04 Hospitalization Ordered by Karlos Jones MD for Inpatient Admission. cg Preliminary diagnosis is Cardiac Arrest; Respiratory Failure. Bed requested for Intensive Care Unit. Status is Inpatient Admission. Condition is Critical. Problem is new. Symptoms have improved. [facility] 20:00 06:10 10/02/2020 05:04 Hospitalization Ordered by Karlos Jones MD for Inpatient Admission. lp1 Preliminary diagnosis is Cardiac Arrest; Respiratory Failure. Bed requested for [facility] ER HOLD. Status is Inpatient Admission. Condition is Critical. Problem is new. Symptoms have improved. cg
--- NOTE | 2020-10-02 05:04 | ER ---
Nurse's Notes [facility] Name: Juan A Lewis Age: 75 yrs Sex: Male : 1945 Arrival Date: 10/02/2020 Time: 04:05 Bed 2 Private MD: Diagnosis: Cardiac Arrest;Respiratory Failure Presentation: 10/02 03:54 Chief complaint: EMS states: Called for patient not breathing, while on scene, patient lp1 arrested; CPR performed for about 8 minutes, no meds given; Per EMS, family would like patient to be DNR status now, family en route; patient sinus rhythm on arrival to ED. 03:54 Care prior to arrival: Oral intubation, CPR performed by EMS IV to EJ pulled out in lp1 transfer to ER bed. 03:54 Method Of Arrival: EMS: [facility] lp1 03:54 Acuity: CLYDE 1 lp1 03:54 Coronavirus screen: unable to complete. rr5 03:54 Ebola Screen: Unable to complete the Ebola screening because: Patient is intubated. rr5 Onset of symptoms was October 02, 2020. 04:09 Compressions began at 03:12. lp1 06:21 Initial Sepsis Screen: Does the patient meet any 2 criteria? No. Patient's initial rv sepsis screen is negative. Does the patient have a suspected source of infection? No. Patient's initial sepsis screen is negative. Risk Assessment: Do you want to hurt yourself or someone else? Unable to obtain. Historical: - Allergies: 04:11 No Known Allergies; lp1 - Home Meds: 04:11 aspirin 81 mg Oral chew [Active]; Breo Ellipta 100-25 mcg/dose inhalation dsdv lp1 [Active]; Ecotrin 81 mg daily Oral TbEC [Active]; Experimental pill BID [Active]; Flonase 50 mcg/actuation Nasal spsn [Active]; gabapentin 300 mg Oral cap 1 cap daily [Active]; riluzole 50 mg Oral tab 1 tab every 12 hours [Active]; tamsulosin 0.4 mg Oral cp24 1 cap once daily [Active]; Vitamin C 1,000 mg Oral tab daily [Active]; vitamin E 1,000 unit Oral cap daily [Active]; - PMHx: 04:11 ALS; Anxiety; CAD; Myocardial infarction; Sleep Apnea; lp1 - Immunization history:: Adult Immunizations unknown. - Social history:: Smoking status: unknown. Screenin:36 Abuse screen: Denies threats or abuse. Denies injuries from another. Nutritional rr5 screening: No deficits noted. Tuberculosis screening: No symptoms or risk factors identified. Fall Risk Secondary diagnosis (15 points) impaired mobility, IV access (20 points). Gait- Impaired (20 pts.). Mental Status- Overestimates/Forgets Limitations (15 pts.). Total Cain Fall Scale indicates High Risk Score (45 or more points). Fall prevention measures have been instituted. Side Rails Up X 2 Frequent Obs/Assessments Occuring Family Present and informed to notify staff if the need to leave the bedside As available patient and family educated on Fall Prevention Program and Strategies. Assessment: 04:30 General: Appears intubated. Behavior is unresponsive. Pain: Unable to use pain scale. rr5 Patient is intubated. Neuro: Level of Consciousness is unresponsive, Oriented to none. Cardiovascular: Capillary refill < 3 seconds. Respiratory: Airway is patent Respiratory effort is none intubated Respiratory pattern is on mechanical ventilator. 04:43 Reassessment: provider, family member, charge nurse at bedside discussing the plan. rr5 family member decided for DNR. 04:47 Reassessment: Patient's discussed with Dr. Howell DNR status, plan verified for lp1 DNR status, no extreme measures. 05:45 Reassessment: bill of materials clerk at bedside. rr5 05:53 Respiratory: Ventilator assessment: ET Tube: Ventilator Mode: Tidal Volume: 500 rr5 Respiratory Rate: 16 FiO2: 100%. PEEP: 6 HOB > 30 degrees. 07:00 Reassessment: RECD REPORT FROM ABE BENAVIDEZ. 75YO S/P CPR. FAMILY AT B/S. FAMILY NOW rr5 DECIDED ON DNR. PCP C/S PENDING. 07:00 Neuro: Level of Consciousness is unresponsive, Oriented to none. rr5 07:00 Reassessment: RECD REPORT FROM ARIEL BENAVIDEZ. 75YO S/P CPR 2/2 RESPIRATORY FAILURE. SEE bp [facility]. Vital Signs: 04:36 BP 61 / 42; Pulse 100; Resp 16; Temp 98.3; Pulse Ox 98% ; Weight 74.84 kg; rr5 05:03 BP 72 / 49; Pulse 99; Resp 19; Pulse Ox 98% ; rr5 ED Course: 04:05 Patient arrived in ED. lp1 04:06 Nicolás Howell MD is Attending Physician. mh7 04:08 Triage completed. lp1 04:11 Arm band placed on. lp1 04:11 Patient has correct armband on for positive identification. Bed in low position. Call lp1 light in reach. Side rails up X2. groundwater monitoring technician on. Pulse ox on. NIBP on. 04:14 Kamlesh Doss RN is Primary Nurse. rv 04:18 Inserted saline lock: 18 gauge in left forearm, using aseptic technique. Blood rr5 collected. 04:23 XRAY Chest (1 view) In Process Unspecified. EDMS 04:36 Scales cath inserted, using sterile technique, 16 Fr., by ED staff, balloon inflated, to rr5 gravity drainage, other inserted by abe. 04:37 COVID swab sent to lab. rr5 05:03 Luis Ariza MD is Hospitalizing Provider. mh7 05:31 Hospitalizing Provider role handed off by Luis Ariza MD 7 05:31 Karlos Jones MD is Hospitalizing Provider. mh7 06:21 No provider procedures requiring assistance completed. IV is patent, with fluids rv infusing freely. 06:22 Patient admitted, IV remains in place. rv 09:02 Primary Nurse role handed off by Kamlesh Doss RN eb 17:41 Gaudencio Ha, PRAMOD is Primary Nurse. bp Administered Medications: 04:40 Drug: NS 0.9% 1000 ml Route: IV; Rate: 1000 ml; Site: left forearm; rr5 07:00 Follow up: IV Status: Completed infusion; IV Intake: 1000ml bp Intake: 07:00 IV: 1000ml; Total: 1000ml. bp Outcome: 05:04 Decision to Hospitalize by Provider. mh7 06:21 Admitted to ER Hold. Please see [email or web address] for further documentation. rv 06:21 critical 06:21 Instructed on the need for admit. 20:00 Patient left the ED. lp1 Signatures: Dispatcher [employer] EDMS Zaria Vaz RN RN lp1 Gaudencio Ha RN RN bp Migdalia Burt eb Kamlesh Doss RN RN rv Roque, Raymond, RN RN rr5 Nicolás Howell MD MD [facility] Corrections: (The following items were deleted from the chart) 04:44 04:36 BP 61 / 42; Pulse 100bpm; Resp 16bpm; Pulse Ox 98%; Temp 98.3F; 99.79 kg; rr5 rr5
[2020-10-02] MEDS ORDERED: ONDANSETRON 4 MG/2 ML VIAL IV PRN (05:34)
[2020-10-02] MEDS ORDERED: ALBUTEROL 2.5 MG/3 ML NEB SOL NEB PRN (05:34)
[2020-10-02] MEDS ORDERED: ACETAMINOPHEN 650MG/RECT SUPP PR PRN (05:34)
[2020-10-02] MEDS: D5 0.45 NS 1,000 ML IV SCH ×2 (06:00→16:00)
[2020-10-02 06:37] VITALS: O2SAT 91; BMI 23.6
[2020-10-02] MEDS ORDERED: D5 0.45 NS 1,000 ML IV ONE (06:49)
[2020-10-02 06:50] LABS: ALT/SGPT 59 U/L (12-78); AST/SGOT 43 U/L (15-37); Albumin 3.4 g/dL (3.4-5.0); Alkaline Phosphatase 104 U/L (45-117); BUN Blood Urea Nitrogen 33 mg/dL (7-18); Bicarbonate 32 mmol/L (21-32); Bilirubin Direct 0.4 mg/dL (0-0.2); Bilirubin Total 0.8 mg/dL (0.2-1.0); Glucose Level 79 mg/dL (74-106); Magnesium 2.3 mg/dL (1.8-2.4); NT PRO-BNP 563 pg/mL (<450); Potassium 4.8 mmol/L (3.5-5.1); Protein, Total 7.1 g/dL (6.4-8.2); Sodium Level 122 mmol/L (136-145); Troponin (Emerg Dept Use Only) < 0.02 ng/mL (0.0-0.045)
--- NOTE | 2020-10-02 13:33 | HP ---
Date of Admission: 10/02/2020 Chief Complaint: Not breathing. History Of Present Illness: This is a 75-year-old pleasant male with history of ALS, who has progressively declined and has advanced stage of ALS. Family is very well aware of this and he has noninvasive ventilator at home. He has been under care of neurologist and body engineer. The patient was brought into emergency room today after he was in cardiopulmonary arrest at home. EMS was called when family found out that he stop breathing and EMS when they arrived, they started CPR and brought him to the emergency room. After he arrived to the ER, he was resuscitated and intubated. When I was contacted, he was on ventilator and he was hypotensive with systolic blood pressure between 60-70 range. ER physician notified me that family does not want any aggressive measures. They do not want to treat him aggressively with any vasopressor medications and in fact they are going to withdraw care. I did visit with him in the emergency room this morning, his and son were present with him at bedside. They informed me that he has a living will, but do not have out of hospital DNR. Allergies: NO KNOWN ALLERGIES. Medications: Ecotrin 81 mg daily, Breo Ellipta inhaler 1 puff daily, Flonase nasal spray 1 spray each nostril 2 times a day, Claritin 10 mg daily as needed for allergies, pantoprazole 40 mg daily, riluzole, sertraline 25 mg daily, and spironolactone 25 mg daily. Review of Systems: Cardiovascular: As mentioned above. Leg edema. Respiratory: As mentioned above. Constitutional: Generalized weakness. [employer]ACLE HRMS DEVELOPER: Weakness of arms and legs. All other systems reviewed and negative. Past Medical History: ALS and he has noninvasive ventilator as well as PEG tube for feeding purposes, allergic rhinitis, sleep apnea, impaired fasting glucose, hypertension, hyperlipidemia, coronary artery disease, abnormal liver function tests, benign prostatic hypertrophy, thrombocytopenia. Past Surgical History: Coronary artery stent placement in 1996 and 1997, hemorrhoid surgery, back surgery. Family History: Mother had Alzheimer disease, hypertension, and stroke. Social History: Negative for smoking, alcohol use. Physical Examination: Vital Signs: Temperature 98.3, pulse 88, respiratory rate 16, blood pressure 68/45, oxygen saturation 94%. Height 5 feet 10 inches, weight 165 pounds. General: Awake, alert, oriented, not in distress. HEENT: Head atraumatic, normocephalic. Conjunctivae nonerythematous. Sclerae white. Mouth, no thrush or edema noted. Ears/Nose, no mass, lesion, discharge noted. Presence of endotracheal tube in mouth. Neck: Supple. No JVD, lymph nodes, bruit, thyromegaly noted. Lungs: Bilateral good equal air entry. Clear to auscultation. No rhonchi. No rales. Heart: Normal heart sounds, no murmur or gallop. Abdomen: Soft, bowel sounds normal. No guarding, rigidity, tenderness, mass, hepatosplenomegaly, distention, or bruit noted. Extremities: Bilateral grade 2 pedal edema. Skin: No rash, ulcer, cellulitis. Lymphatics: No lymph node enlargement in neck, supraclavicular, infraclavicular region. Neuro: The patient does not respond to any verbal command or any painful stimuli. Occasional spontaneous movement of extremity was present. Chest: Unremarkable. External Genitalia: Presence of Scales catheter with dark brown color urine. Rectal: Deferred. Laboratory Data: White count 13.5, hemoglobin 13, platelets 202. Blood gas; pH 7.39, pCO2 62, pO2 187, oxygen saturation 98.9% on 100% FiO2. Sodium 122, potassium 4.8, chloride 85, bicarb 32, BUN 33, creatinine 0.73, glucose 79, lactic acid 4.8, AST 43, ALT 59, alkaline phosphatase 104. Troponin less than 0.02. ProBNP 563. COVID-19 test negative. Impression: 1. Cardiac arrest. 2. Acute respiratory failure with hypercapnia. 3. Amyotrophic lateral sclerosis. 4. Coronary artery disease. 5. Hypertension. 6. Hyperlipidemia. 7. Hyponatremia. Plan: Admit patient to the hospital for further evaluation and management of this problem. The patient is appropriate for inpatient and is expected to spend 2 midnights in hospital. We will go ahead and continue current ventilator support. His overall prognosis is very poor and he is not expected to survive this hospitalization. I had long discussion with the patient's and his other family who was present there. We discussed different options as far as the plan of care is concerned and 1 option is to treat him aggressively including use of vasopressor medications and any other aggressive treatment that may become necessary and the patient's informed me that she does not want any such aggressive treatment as she tells me that the patient would not have wanted such treatment. So, other option we discussed was to go ahead and consider to continue what we are doing and do not add any extra treatment or the third option is withdrawal of care that is withdrawal of life support and then let the God and nature to take its course and the patient's and son, both informed me that is exactly what the patient would want which is withdrawal of care and let the nature take its course and keep him comfortable. Appropriate withdrawal of care form and paperwork will be completed by family and family is going to try to find out if any other family members would like to have chance to visit with him this morning before they withdraw care and at appropriate time they will request withdrawal of care. In my best medical judgment, his condition will rapidly deteriorate once we withdraw life support and family was made aware of that. We also discussed about hospice care, but that really will not be necessary in his case given very poor prognosis and very short life expectancy after withdrawal of care involved. ALEC/YANICK Voice ID: [id number] PARMINDER
[2020-10-02 17:24] VITALS: BP 71/38; TEMP 97.7
--- NOTE | 2020-10-02 22:05 | RAD REPORT ---
EXAM DESCRIPTION: RAD - Chest Single View - 10/02/2020 4:23 am COMPARISON: CT chest September 01 report only CLINICAL HISTORY: [facility] MAIN SOB FINDINGS: A single AP view of the chest demonstrates a normal cardiomediastinal silhouette. Endotrac heal tube tip is 5.4 cm from the [place]. No pneumothorax. Small right pleural effusion. Bibasilar opacities are present, greater on the right. Osseous structures are intact./ IMPRESSION: Endotracheal tube tip is 5.4 cm from the [place]. Small right pleural effusion with bibas ilar opacities which may represent edema or multifocal pneumonia. Electronically signed by: Shant Call MD 10/02/2020 4:36 AM CDT Due to temporary technical issues with the PACS/Fluency reporting system, reports are being signed by the in house radiologists without review as a courtesy to insure prompt reporting. The interpreting radiologist is fully responsible for the content of the report.
--- NOTE | 2020-10-03 19:32 | DS ---
Date of Discharge: 10/02/2020 Disposition: The patient today. Physical Examination: See copy of today's H and P for more details. Final Diagnoses: 1.Cardiac arrest. 2.Acute respiratory failure with hypercapnia. 3.ALS that is amyotrophic lateral sclerosis. 4.Coronary artery disease. 5.Hypertension. 6.Hyperlipidemia. 7.Hyponatremia. Hospital Course: A 75-year-old male patient, who stopped breathing at home and was brought into the emergency room. Please see dictated H and P for more information. The patient was in cardiopulmonar y arrest, was intubated, admitted to the hospital. The patient's family was present when I saw him i n the morning. When ER physician contacted me, he was on ventilator, hypotensive. Family did not wa nt any aggressive measures including no vasopressor and they wanted comfort care only. The patient w as on ventilator when I saw him. I did have a detailed discussion with the patient's family member. DNR order was in place as decision made by family and subsequently family decided to withdraw life s upport and after appropriate paperwork was done, life support was withdrawn and the patient with in a short time after withdrawal of life support. This was expected . ALEC/MODL Voice ID: [id number] Report ID: [id number]
== END 2020-10-02 19:49 | disposition expired | DRG 208 ==
LOC: ER 04:03 → ERHOLD 05:41
PROVIDERS: ADMIT Internal Medicine; ATTEND Internal Medicine
PROC: 5A1935Z Respiratory Ventilation, Less than 24 Consecutive Hours (ICD-10-PCS; principal; 2020-10-02)
PROC: 0BH17EZ Insertion of Endotracheal Airway into Trachea, Via Natural or Artificial Opening (ICD-10-PCS; 2020-10-02)
DX: J96.02 Acute respiratory failure with hypercapnia (principal); G12.21 Amyotrophic lateral sclerosis; E87.1 Hypo-osmolality and hyponatremia; I25.10 Atherosclerotic heart disease of native coronary artery without angina pectoris; I10 Essential (primary) hypertension; E78.5 Hyperlipidemia, unspecified; I25.2 Old myocardial infarction; I46.9 Cardiac arrest, cause unspecified; Z95.5 Presence of coronary angioplasty implant and graft; Z66 Do not resuscitate; Z79.82 Long term (current) use of aspirin; Z79.899 Other long term (current) drug therapy; Z20.822 Contact with and (suspected) exposure to COVID-19
CPT/HCPCS: 36415; 51702; 71045; 80048; 80076; 82805; 82947; 83605; 83735; 83880; 84484; 85025; 85610; 87040; 92950; 93005; 94002; 96360; 96361; 99291; J7030; J7799; U0003